=== PATIENT | female | born 1930 | race Two or more races ===

== ENCOUNTER 2017-04-29 04:11 | Inpatient (IN) | payer MEDICARE, OTHER ==
[2017-04-29] VITALS (8 sets, daily range): BP systolic 126–161; BP diastolic 37–84
[~2017-04-29] VITALS: Ht 160 cm; Wt 52.2 kg
--- NOTE | 2017-04-29 04:24 | Emergency Room Report ---
History of Present Illness General Chief Complaint: Upper Respiratory Illness Source: Patient, Medical Record, EMS Present Illness HPI Is an 86-year-old female with a history of CVA. Also history of asthma/COPD. Patient presents with shortness of breath ongoing for one day. No fever or chills. Coughing but nonproductive in nature. Per EMS, she was in respiratory distress and albuterol. He seemed to help. They described diffuse rhonchi. Nothing made it better and nothing made it worse. She denies any chest pain Allergies: Coded Allergies: PENICILLINS (Verified Allergy, Unknown, 04/29/17) SULFA (SULFONAMIDE ANTIBIOTICS) (Verified Allergy, Unknown, 04/29/17) Patient History Past Medical History: see triage record, old chart reviewed, COPD Past Surgical History: other Pertinent Family History: none Social History: Denies: smoking Now: No Immunizations: other Reviewed Nursing Documentation: PMH: Agreed, PSxH: Agreed Nursing Documentation-PMH Hx COPD: Yes Review of Systems Eye: Denies: blurred vision, eye pain ENT: Denies: ear pain, nose congestion, throat swelling Respiratory: Reports: cough, shortness of breath Cardiovascular: Denies: chest pain, palpitations Gastrointestinal: Denies: abdominal pain, diarrhea, nausea, vomiting Musculoskeletal: Denies: back pain, joint pain Skin: Denies: rash Neurological: Denies: headache, numbness Endocrine: Denies: increased thirst, increased urine Hematologic/Lymphatic: Denies: easy bruising All Other Systems: negative except mentioned in HPI Physical Exam Vital Signs Date Time Temp Pulse Resp B/P Pulse Ox O2 Delivery O2 Flow Rate FiO2 04/29/17 03:59 97.2 120 29 213/103 93 Room Air high-dose with tachycardia in hypertension and hypoxia. Repeat blood pressures 103/35. Sp02 EP Interpretation: reviewed, normal General Appearance: well appearing, alert, mild distress Head: normocephalic, atraumatic Eyes: bilateral eye EOMI, bilateral eye PERRL ENT: hearing grossly normal, normal pharynx Neck: full range of motion, supple, no meningismus Respiratory: chest non-tender, respiratory distress - Mild, accessory muscle use, rhonchi Cardiovascular #1: regular rate, rhythm, no murmur Gastrointestinal: normal bowel sounds, non tender, no mass, no organomegaly, no bruit, non-distended Musculoskeletal: back normal, normal range of motion Neurologic: alert Psychiatric: mood/affect normal Skin: warm/dry Medical Decision Making Diagnostic Impression: Primary Impression: Pneumonia Qualified Codes: J18.1 - Lobar pneumonia, unspecified organism Additional Impression: Asthma exacerbation ER Course Patient presents with rest or distress. Only has minimal nature. She does have some tightness and wheezing. Better with nebulizer treatment. No evidence of ACS, PE, dissection to name a few. Will admit patient for IV antibiotics and further workup. I discussed the case with Dr. Prado who accepted pt for admission. Laboratory Tests Test 04/29/17 04:10 04/29/17 04:30 04/29/17 05:00 White Blood Count 11.2 K/UL (4.8-10.8) H Red Blood Count 2.75 M/UL (4.20-5.40) L Hemoglobin 9.1 G/DL (12.0-16.0) L Hematocrit 26.5 % (37.0-47.0) L Mean Corpuscular Volume 96 FL (80-99) Mean Corpuscular Hemoglobin 33.2 PG (27.0-31.0) H Mean Corpuscular Hemoglobin Concent 34.5 G/DL (32.0-36.0) Red Cell Distribution Width 15.9 % (11.6-14.8) H Platelet Count 331 K/UL (150-450) Mean Platelet Volume 4.9 FL (6.5-10.1) L Neutrophils (%) (Auto) 60.9 % (45.0-75.0) Lymphocytes (%) (Auto) 13.4 % (20.0-45.0) L Monocytes (%) (Auto) 16.5 % (1.0-10.0) H Eosinophils (%) (Auto) 8.1 % (0.0-3.0) H Basophils (%) (Auto) 1.2 % (0.0-2.0) Prothrombin Time 10.6 SEC (9.30-11.50) Prothromb Time International Ratio 1.0 (0.9-1.1) Activated Partial Thromboplast Time 26 SEC (23-33) Sodium Level 131 mEQ/L (135-145) L Potassium Level 3.7 mEQ/L (3.4-4.9) Chloride Level 91 mEQ/L (98-107) L Carbon Dioxide Level 24 mEQ/L (20-30) Anion Gap 16 (5-15) H Blood Urea Nitrogen 6 mg/dL (7-23) L Creatinine 0.4 mg/dL (0.5-0.9) L Estimat Glomerular Filtration Rate mL/min (>60) Glucose Level 174 mg/dL (74-106) H Calcium Level 7.9 mg/dL (8.6-10.2) L Total Bilirubin 0.5 mg/dL (0.0-1.2) Aspartate Amino Transf (AST/SGOT) 13 U/L (5-40) Alanine Aminotransferase (ALT/SGPT) 7 U/L (3-33) Alkaline Phosphatase 66 U/L (35-104) Total Creatine Kinase 25 U/L (26-140) L Creatine Kinase MB < 1.5 ng/mL (< 3.8) Troponin I < 0.30 ng/mL (<=0.30) Pro-B-Type Natriuretic Peptide 745 pg/mL (0-450) H Total Protein 4.8 g/dL (6.6-8.7) L Albumin 2.9 g/dL (3.5-5.2) L Globulin 1.9 g/dL Albumin/Globulin Ratio 1.5 (1.0-2.7) Lactic Acid Level 1.40 mmol/L (0.66-2.22) Lab Results Impression labs unremarkable EKG Diagnostic Results EKG Time: 05:44 Rate: tachycardiac Rhythm: NSR ST Segments: no acute changes Rhythm Strip Diag. Results Rhythm Strip Time: 05:44 EP Interpretation: yes Rate: 92 Rhythm: NSR, no PVC's, no ectopy, other - NSST changes. Incomplete RBBB Chest X-Ray Diagnostic Results Chest X-Ray Diagnostic Results : Chest X-Ray Ordered: Yes # of Views/Limited/Complete: 1 View Indication: Shortness of Breath EP Interpretation: Yes Interpretation: no effusion, no pneumothorax, other - RLL infiltrate Impression: Other - rll infltrate Interpreting ER Provider: Electronically signed by Asif Ervin MD Last Vital Signs Date Time Temp Pulse Resp B/P Pulse Ox O2 Delivery O2 Flow Rate FiO2 04/29/17 03:59 97.2 120 29 213/103 93 Room Air Status: improved Disposition: ADMITTED INPATIENT Condition: Serious ASIF ERVIN M.D. Apr 29, 2017 04:24
[2017-04-29] MEDS ORDERED: Acetaminophen 500mg (ES) tab ORAL ONE (04:30)
[2017-04-29] MEDS ORDERED: DIFLUCAN100 MG ORAL (04:31)
[2017-04-29] MEDS ORDERED: VITAMIN C500 M1 ORAL (04:31)
[2017-04-29] MEDS ORDERED: ACETAMINOPHEN325 M1 ORAL (04:31)
[2017-04-29] MEDS ORDERED: PROTONIX40 MG ORAL (04:31)
[2017-04-29] MEDS ORDERED: MAG-OXIDE400 M1 PO (04:31)
[2017-04-29] MEDS ORDERED: IPRATROPIU0.2 MG/1 M HHN (04:31)
[2017-04-29] MEDS ORDERED: ATORVASTATIN CA10 MG ORAL (04:31)
[2017-04-29] MEDS ORDERED: OYSTER SHELL C500 MG PO (04:31)
[2017-04-29] MEDS ORDERED: FERROUS SULFAT325 MG ORAL (04:31)
[2017-04-29] MEDS ORDERED: ADVAIR 250-501 EACH INH (04:31)
[2017-04-29] MEDS ORDERED: METFORMIN HCL500 M1 ORAL (04:31)
[2017-04-29] MEDS ORDERED: CIPRO500 MG PO (04:31)
[2017-04-29 04:45] LABS: BASOPHILS % (AUTO) 1.2 % (0.0-2.0); EOSINOPHILS % (AUTO) 8.1 % (0.0-3.0); LYMPHOCYTES % (AUTO) 13.4 % (20.0-45.0); MEAN CORPUSCULAR HEMOGLOBIN 33.2 PG (27.0-31.0); MEAN CORPUSCULAR HGB CONC 34.5 G/DL (32.0-36.0); MEAN CORPUSCULAR VOLUME 96 FL (80-99); MEAN PLATELET VOLUME 4.9 FL (6.5-10.1); MONOCYTES % (AUTO) 16.5 % (1.0-10.0); NEUTROPHILS % (AUTO) 60.9 % (45.0-75.0); PLATELET COUNT 331 K/UL (150-450); RED BLOOD COUNT 2.75 M/UL (4.20-5.40); RED CELL DISTRIBUTION WIDTH 15.9 % (11.6-14.8); WHITE BLOOD COUNT 11.2 K/UL (4.8-10.8)
[2017-04-29 05:07] LABS: PROTHROMBIN TIME 10.6 SEC (9.30-11.50)
[2017-04-29] MEDS ORDERED: Cefepime 1gm vial ONE (05:25)
[2017-04-29] MEDS ORDERED: Cefepime HCl 1 GM in D5W 55 ML IVPB ONE (05:30)
[2017-04-29 05:41] LABS: ALANINE AMINOTRANSFERASE 7 U/L (3-33); ALBUMIN/GLOBULIN RATIO 1.5 (1.0-2.7); ANION GAP 16 (5-15); ASPARTATE AMINO TRANSFERASE 13 U/L (5-40); CALCIUM 7.9 mg/dL (8.6-10.2); CARBON DIOXIDE 24 mEQ/L (20-30); CHLORIDE 91 mEQ/L (98-107); CREATININE 0.4 mg/dL (0.5-0.9); HEMOLYSIS 10; POTASSIUM 3.7 mEQ/L (3.4-4.9); SODIUM 131 mEQ/L (135-145); TOTAL PROTEIN 4.8 g/dL (6.6-8.7)
[2017-04-29 06:04] LABS: TROPONIN I < 0.30 ng/mL (<=0.30)
[2017-04-29 06:13] LABS: CKMB < 1.5 ng/mL (< 3.8)
[2017-04-29] MEDS ORDERED: Albuterol ud Inhalation HHN ONE ×2 (06:30→08:30)
[2017-04-29] MEDS ORDERED: Ipratropium 0.02% Inh Soln 2.5ml UD HHN ONE (08:30)
--- NOTE | 2017-04-29 08:39 | History & Physical ---
History and Physical History & Physicial patient is seen and examined. Dictation completed Armando Prado MD Apr 29, 2017 08:39
[2017-04-29] MEDS ORDERED: Vancomycin 1.5gm/D5W 250ml 250 ML IVPB SCH (08:45)
[2017-04-29] MEDS: Heparin 5000 units/ml inj SUBQ SCH ×2 (09:46→21:00)
[2017-04-29] MEDS: Meropenem 1 GM in NS 110 ML IVPB SCH ×2 (09:46→21:00)
--- NOTE | 2017-04-29 09:46 | Infectious Diseases Prog Note ---
Assessment/Plan Assessment/Plan ID consult was dictated # [id number] Subjective Allergies: Coded Allergies: PENICILLINS (Verified Allergy, Unknown, 04/29/17) SULFA (SULFONAMIDE ANTIBIOTICS) (Verified Allergy, Unknown, 04/29/17) Objective Vital Signs Last 24 Hour Vital Signs Date Time Temp Pulse Resp B/P Pulse Ox O2 Delivery O2 Flow Rate FiO2 04/29/17 09:17 97.0 97 26 137/60 98 Nasal Cannula 2.0 04/29/17 08:34 97 27 95 Nasal Cannula 2.0 04/29/17 08:06 98 16 132/78 99 Nasal Cannula 2.0 04/29/17 07:41 97 24 Nasal Cannula 2.0 04/29/17 07:41 97.6 97 24 133/37 99 Nasal Cannula 2.0 04/29/17 06:45 97 19 100 Nasal Cannula 2.0 28 04/29/17 06:45 97.3 98 26 135/46 96 Nasal Cannula 2.0 04/29/17 06:30 94 26 92 Nasal Cannula 2.0 28 04/29/17 06:30 94 26 Nasal Cannula 2.0 28 04/29/17 06:13 97.2 04/29/17 04:15 97.2 100 26 126/79 93 Room Air 04/29/17 04:15 120 29 Room Air 2.0 04/29/17 03:59 97.2 120 29 213/103 93 Room Air Height (Feet): 5 Height (Inches): 3.00 Weight (Pounds): 115 Laboratory Tests Test 04/29/17 04:10 04/29/17 04:30 04/29/17 05:00 White Blood Count 11.2 K/UL (4.8-10.8) H Red Blood Count 2.75 M/UL (4.20-5.40) L Hemoglobin 9.1 G/DL (12.0-16.0) L Hematocrit 26.5 % (37.0-47.0) L Mean Corpuscular Volume 96 FL (80-99) Mean Corpuscular Hemoglobin 33.2 PG (27.0-31.0) H Mean Corpuscular Hemoglobin Concent 34.5 G/DL (32.0-36.0) Red Cell Distribution Width 15.9 % (11.6-14.8) H Platelet Count 331 K/UL (150-450) Mean Platelet Volume 4.9 FL (6.5-10.1) L Neutrophils (%) (Auto) 60.9 % (45.0-75.0) Lymphocytes (%) (Auto) 13.4 % (20.0-45.0) L Monocytes (%) (Auto) 16.5 % (1.0-10.0) H Eosinophils (%) (Auto) 8.1 % (0.0-3.0) H Basophils (%) (Auto) 1.2 % (0.0-2.0) Prothrombin Time 10.6 SEC (9.30-11.50) Prothromb Time International Ratio 1.0 (0.9-1.1) Activated Partial Thromboplast Time 26 SEC (23-33) Sodium Level 131 mEQ/L (135-145) L Potassium Level 3.7 mEQ/L (3.4-4.9) Chloride Level 91 mEQ/L (98-107) L Carbon Dioxide Level 24 mEQ/L (20-30) Anion Gap 16 (5-15) H Blood Urea Nitrogen 6 mg/dL (7-23) L Creatinine 0.4 mg/dL (0.5-0.9) L Estimat Glomerular Filtration Rate mL/min (>60) Glucose Level 174 mg/dL (74-106) H Calcium Level 7.9 mg/dL (8.6-10.2) L Total Bilirubin 0.5 mg/dL (0.0-1.2) Aspartate Amino Transf (AST/SGOT) 13 U/L (5-40) Alanine Aminotransferase (ALT/SGPT) 7 U/L (3-33) Alkaline Phosphatase 66 U/L (35-104) Total Creatine Kinase 25 U/L (26-140) L Creatine Kinase MB < 1.5 ng/mL (< 3.8) Troponin I < 0.30 ng/mL (<=0.30) Pro-B-Type Natriuretic Peptide 745 pg/mL (0-450) H Total Protein 4.8 g/dL (6.6-8.7) L Albumin 2.9 g/dL (3.5-5.2) L Globulin 1.9 g/dL Albumin/Globulin Ratio 1.5 (1.0-2.7) Lactic Acid Level 1.40 mmol/L (0.66-2.22) Current Medications Medications (Trade) Dose Ordered Sig/Abhijeet Route PRN Reason Start Time Stop Time Status Last Admin Dose Admin Acetaminophen (Tylenol) 650 mg Q6H PRN ORAL Mild Pain/Temp > 100.5 04/29/17 08:00 05/29/17 07:59 Heparin Sodium (Porcine) 5000 units 5,000 units EVERY 12 HOURS SUBQ 04/29/17 09:00 05/29/17 08:59 Meropenem/Sodium Chloride (Merrem/Sodium Chloride) 110 ml @ 220 mls/hr Q12HR IVPB 04/29/17 09:00 04/30/17 08:59 Ondansetron HCl (Zofran) 4 mg Q6H PRN IVP Nausea & Vomiting 04/29/17 08:00 05/29/17 07:59 Promethazine HCl/ Codeine (Phenergan with Codeine) 5 ml Q4H PRN ORAL For Cough 04/29/17 10:00 05/29/17 09:59 Vancomycin HCl 1 ea 1 ea DAILY PRN MISC per Rx protocol 04/29/17 09:00 05/29/17 08:59 Vancomycin HCl 1 gm/Dextrose 275 ml @ 183.708 mls/hr ONCE ONCE IVPB 04/29/17 10:00 04/29/17 11:29 Vancomycin HCl/ Dextrose (Vancomycin/D5W) 275 ml @ 183.708 mls/hr Q24H IVPB 04/30/17 09:00 05/05/17 08:59 CHINO MILLS Apr 29, 2017 09:46
[2017-04-29] MEDS ORDERED: Vancomycin 1gm/D5W 275ml IVPB ONE ×2 (10:00)
[2017-04-29] MEDS ORDERED: Promethazine/Codeine 5ml UD ORAL PRN (10:00)
[2017-04-29] MEDS ORDERED: DuoNeb 0.5-3(2.5)mg/3ml neb HHN PRN (11:00)
--- NOTE | 2017-04-29 12:13 | Consultation ---
History of Present Illness General Date patient seen: Apr 29, 2017 Chief Complaint: Upper Respiratory Illness Referring physician: Dr Prado Present Illness HPI 86-year-old female with a history of CVA, COPD with recent hospitalization in [facility] with subsequent discharge to a [facility] was brought in by paramedics with CC of shortness of breath ongoing for one day. No fever or chills. Coughing but nonproductive in nature. Pt was in respiratory distress and received nebulizer treatment which seemed to help her somewhat. Allergies: Coded Allergies: PENICILLINS (Verified Allergy, Unknown, 04/29/17) SULFA (SULFONAMIDE ANTIBIOTICS) (Verified Allergy, Unknown, 04/29/17) Medication History Scheduled Ascorbic Acid* (Vitamin C*), 500 MG ORAL DAILY, (Reported) Atorvastatin Calcium* (Lipitor*), 10 MG ORAL BEDTIME, (Reported) Calcium Carbonate (Oyster Shell Calcium), 500 MG PO BID, (Reported) Ciprofloxacin* (Cipro*), 500 MG PO BID, (Reported) Ferrous Sulfate* (Ferrous Sulfate*), 325 MG ORAL DAILY, (Reported) Fluconazole* (Diflucan*), 100 MG ORAL DAILY, (Reported) Fluticasone/Salmeterol (Advair 250-50 Diskus), 1 PUFF INH EVERY 12 HOURS, ( Reported) Magnesium Oxide (Mag-Oxide), 400 MG PO DAILY, (Reported) Metformin Hcl* (Metformin Hcl*), 500 MG ORAL DAILY, (Reported) Pantoprazole* (Protonix*), 40 MG ORAL BID, (Reported) Scheduled PRN Acetaminophen* (Acetaminophen 325MG Tablet*), 325 MG ORAL Q4H PRN for Mild Pain (Pain Scale 1-3), (Reported) Ipratropium Cushing 0.5MG/2.5ML (Ipratropium Cushing 0.5MG/2.5ML), 0.5 MG HHN Q4HR PRN for Shortness of Breath, (Reported) Patient History Healthcare decision maker Melissa Brown Resuscitation status Full Code Advanced Directive on File Past Medical/Surgical History Past Medical/Surgical History: (1) COPD (chronic obstructive pulmonary disease) (2) Advanced dementia Review of Systems Respiratory: Reports: cough, shortness of breath All Other Systems: negative except mentioned in HPI Physical Exam General Appearance: WD/WN Lines, tubes and drains: peripheral, central line HEENT: normocephalic, atraumatic Neck: non-tender, normal alignment Respiratory/Chest: chest wall non-tender, lungs clear Cardiovascular/Chest: normal peripheral pulses, normal rate Abdomen: normal bowel sounds, non tender Genitourinary/Rectal: normal genital exam, normal rectal exam, normal prostate exam Extremities: normal range of motion Last 24 Hour Vital Signs Date Time Temp Pulse Resp B/P Pulse Ox O2 Delivery O2 Flow Rate FiO2 04/29/17 11:32 97.2 96 26 134/56 97 Nasal Cannula 2.0 04/29/17 10:55 96 20 97 Nasal Cannula 2.0 04/29/17 09:17 97.0 97 26 137/60 98 Nasal Cannula 2.0 04/29/17 09:01 98 Nasal Cannula 2.0 04/29/17 09:00 Nasal Cannula 2.0 04/29/17 08:50 94 20 100 Nasal Cannula 2.0 04/29/17 08:34 97 27 95 Nasal Cannula 2.0 04/29/17 08:06 98 16 132/78 99 Nasal Cannula 2.0 04/29/17 07:41 97 24 Nasal Cannula 2.0 04/29/17 07:41 97.6 97 24 133/37 99 Nasal Cannula 2.0 04/29/17 06:45 97 19 100 Nasal Cannula 2.0 04/29/17 06:45 97.3 98 26 135/46 96 Nasal Cannula 2.0 04/29/17 06:30 94 26 92 Nasal Cannula 2.0 28 04/29/17 06:30 94 26 Nasal Cannula 2.0 04/29/17 06:13 97.2 04/29/17 04:15 97.2 100 26 126/79 93 Room Air 04/29/17 04:15 120 29 Room Air 2.0 04/29/17 03:59 97.2 120 29 213/103 93 Room Air Intake and Output 04/28/17 04/29/17 19:00 07:00 Intake Total 0 ml Balance 0 ml Other 0 ml Laboratory Tests Test 04/29/17 04:10 04/29/17 04:30 04/29/17 05:00 White Blood Count 11.2 K/UL (4.8-10.8) H Red Blood Count 2.75 M/UL (4.20-5.40) L Hemoglobin 9.1 G/DL (12.0-16.0) L Hematocrit 26.5 % (37.0-47.0) L Mean Corpuscular Volume 96 FL (80-99) Mean Corpuscular Hemoglobin 33.2 PG (27.0-31.0) H Mean Corpuscular Hemoglobin Concent 34.5 G/DL (32.0-36.0) Red Cell Distribution Width 15.9 % (11.6-14.8) H Platelet Count 331 K/UL (150-450) Mean Platelet Volume 4.9 FL (6.5-10.1) L Neutrophils (%) (Auto) 60.9 % (45.0-75.0) Lymphocytes (%) (Auto) 13.4 % (20.0-45.0) L Monocytes (%) (Auto) 16.5 % (1.0-10.0) H Eosinophils (%) (Auto) 8.1 % (0.0-3.0) H Basophils (%) (Auto) 1.2 % (0.0-2.0) Prothrombin Time 10.6 SEC (9.30-11.50) Prothromb Time International Ratio 1.0 (0.9-1.1) Activated Partial Thromboplast Time 26 SEC (23-33) Sodium Level 131 mEQ/L (135-145) L Potassium Level 3.7 mEQ/L (3.4-4.9) Chloride Level 91 mEQ/L (98-107) L Carbon Dioxide Level 24 mEQ/L (20-30) Anion Gap 16 (5-15) H Blood Urea Nitrogen 6 mg/dL (7-23) L Creatinine 0.4 mg/dL (0.5-0.9) L Estimat Glomerular Filtration Rate mL/min (>60) Glucose Level 174 mg/dL (74-106) H Calcium Level 7.9 mg/dL (8.6-10.2) L Total Bilirubin 0.5 mg/dL (0.0-1.2) Aspartate Amino Transf (AST/SGOT) 13 U/L (5-40) Alanine Aminotransferase (ALT/SGPT) 7 U/L (3-33) Alkaline Phosphatase 66 U/L (35-104) Total Creatine Kinase 25 U/L (26-140) L Creatine Kinase MB < 1.5 ng/mL (< 3.8) Troponin I < 0.30 ng/mL (<=0.30) Pro-B-Type Natriuretic Peptide 745 pg/mL (0-450) H Total Protein 4.8 g/dL (6.6-8.7) L Albumin 2.9 g/dL (3.5-5.2) L Globulin 1.9 g/dL Albumin/Globulin Ratio 1.5 (1.0-2.7) Lactic Acid Level 1.40 mmol/L (0.66-2.22) Height (Feet): 5 Height (Inches): 3.00 Weight (Pounds): 115 Medications Current Medications Medications (Trade) Dose Ordered Sig/Abhijeet Route PRN Reason Start Time Stop Time Status Last Admin Dose Admin Acetaminophen (Tylenol) 650 mg Q6H PRN ORAL Mild Pain/Temp > 100.5 04/29/17 08:00 05/29/17 07:59 Albuterol/ Ipratropium (DuoNeb 0.5-3(2.5)mg/3ml) 3 ml Q4H PRN HHN Shortness of Breath 04/29/17 11:00 05/04/17 10:59 04/29/17 10:58 Heparin Sodium (Porcine) 5000 units 5,000 units EVERY 12 HOURS SUBQ 04/29/17 09:00 05/29/17 08:59 Meropenem/Sodium Chloride (Merrem/Sodium Chloride) 110 ml @ 220 mls/hr Q12HR IVPB 04/29/17 09:00 05/04/17 08:59 04/29/17 09:46 Ondansetron HCl (Zofran) 4 mg Q6H PRN IVP Nausea & Vomiting 04/29/17 08:00 05/29/17 07:59 Promethazine HCl/ Codeine (Phenergan with Codeine) 5 ml Q4H PRN ORAL For Cough 04/29/17 10:00 05/29/17 09:59 Assessment/Plan Problem List: (1) Asthma exacerbation ICD Codes: J45.901 - Unspecified asthma with (acute) exacerbation SNOMED: 917981380 (2) COPD (chronic obstructive pulmonary disease) ICD Codes: J44.9 - Chronic obstructive pulmonary disease, unspecified SNOMED: 03423050 (3) Advanced dementia ICD Codes: F03.90 - Unspecified dementia without behavioral disturbance SNOMED: 62567730 (4) Pneumonia ICD Codes: J18.9 - Pneumonia, unspecified organism SNOMED: 275791241 Qualifiers: Qualified Codes: J18.1 - Lobar pneumonia, unspecified organism Assessment/Plan respiratory treatment IV anx check sputum antitussives anemia w/u dvt prophylaxis ALBERTO CHING Apr 29, 2017 12:13
--- NOTE | 2017-04-29 12:46 | History and Physical Report ---
DATE OF ADMISSION: 04/29/2017 SOURCE OF INFORMATION: The patient and EMR. HISTORY OF PRESENT ILLNESS: The patient is an 86-year-old female. She is a resident of a detention facility. She presented with worsening of shortness of breath for one day. The patient apparently is demented and limited source of information. Per emergency room documentation, no fever, no chills, has been reported. The patient denies any diarrhea, constipation, nausea, or vomiting. REVIEW OF SYSTEMS: All 12 points of review of systems reviewed with the patient. Pertinent positives and negatives are reported. PAST SURGICAL HISTORY: Lumbar and cervical surgeries. ALLERGIES: Penicillin and sulfa. PAST MEDICAL HISTORY: Asthma, COPD, spinal spondylosis, hyperlipidemia, dementia, COPD/asthma, and prediabetes/diabetes. FAMILY HISTORY: Reviewed. Noncontributory. SOCIAL HISTORY: The patient is currently resident of a detention facility. No prior history of illicit drug abuse or alcohol has been reported. PHYSICAL EXAMINATION: VITAL SIGNS: Blood pressure 140/50, temperature 98.2, pulse rate 120, respiratory rate 20-30, and pulse oximetry 93% on room air. HEAD AND NECK: Atraumatic and normocephalic. CHEST: Diffuse bronchial breathing sounds. Diffuse wheezing. HEART: S1 and S2. Tachycardic. Regular rate and rhythm. ABDOMEN: Soft. No organomegaly. Positive for small hernia in the lower abdomen. MUSCULOSKELETAL: Atrophied musculature. NEUROLOGIC: The patient is awake and alert x3. Positive for gross dementia. LABORATORY DATA: On 04/29/2017 shows WBC 11.2, hemoglobin 9.1, and platelets 331,000. Sodium 131, potassium 3.7, BUN 6, and creatinine 0.4. Troponin times x1 negative. ALT and AST are within normal limits. Official report of chest x-ray is not available at this time. ASSESSMENT AND PLAN: 1. Healthcare-associated pneumonia. 2. Chronic obstructive pulmonary disease and asthma exacerbation. 3. Hypertension. 4. Diabetes/prediabetes. 5. Hyperlipidemia. 6. Hyponatremia. 7. Anemia age indeterminate. 8. Gastrointestinal and deep vein thrombosis prophylaxis. PLAN OF CARE: I will start the patient on Zosyn and vancomycin. Blood culture results are pending. Infectious Disease, Pulmonary Dr. Salvador, Cardiology Dr. Leos have been consulted. Armando Prado M.D. DR: LAURE JOB#: [id number] CC: DENISHA
[2017-04-29 13:21] LABS: INR 1.1 (0.9-1.1); PROTHROMBIN TIME 11.3 SEC (9.30-11.50)
[2017-04-29 13:38] LABS: ANISOCYTOSIS 1+; BAND NEUTROPHILS % (MANUAL) 0 % (0-8); BASOPHILS % (MANUAL) 1 % (0-2); EOSINOPHILS % (MANUAL) 5 % (0-3); HYPOCHROMASIA 1+; LYMPHOCYTES % (MANUAL) 19 % (20-45); NEUTROPHILS % (MANUAL) 61 % (45-75); PLATELET ESTIMATE ADEQUATE; PLATELET MORPHOLOGY NORMAL; TOTAL CELLS COUNTED 100
[2017-04-29 13:39] LABS: PATH BLOOD SMEAR/OMC SENT TO PATHOLOGIST
[2017-04-29 13:46] LABS: TROPONIN I < 0.30 ng/mL (<=0.30)
[2017-04-29] MEDS ORDERED: Tubing IV Secondary IV ONE (13:47)
[2017-04-29] MEDS ORDERED: NS 275ml ONE (13:47)
[2017-04-29] MEDS: Solu-MEDROL 40mg Inj IVP SCH ×2 (14:00→21:36)
[2017-04-29 14:16] LABS: ERYTHROCYTE SEDIMENTATION RATE 46 MM/HR (0-42)
[2017-04-29 14:45] LABS: APPEARANCE,URINE CLEAR; KETONES,URINE 3+ (NEGATIVE); LEUKOCYTE ESTERASE ,URINE 1+ (NEGATIVE); NITRITE,URINE NEGATIVE (NEGATIVE); PH,URINE 8 (4.5-8.0); PROTEIN,URINE 1+ (NEGATIVE); UROBILINOGEN,URINE NORMAL MG/DL (0.0-1.0)
[2017-04-29 15:01] LABS: BACTERIA,URINE FEW /HPF; SQUAMOUS EPITHELIAL CELL,UR FEW /LPF (NONE/OCC)
--- NOTE | 2017-04-29 18:11 | Cardiology Progress Note ---
Assessment/Plan Assessment/Plan The patient is seen and examined, full consult note will be dictated. Objective Last 24 Hour Vital Signs Date Time Temp Pulse Resp B/P Pulse Ox O2 Delivery O2 Flow Rate FiO2 04/29/17 16:00 107 04/29/17 15:42 97.0 112 26 140/80 96 Nasal Cannula 2.0 04/29/17 12:00 84 04/29/17 11:32 97.2 96 26 134/56 97 Nasal Cannula 2.0 04/29/17 10:55 96 20 97 Nasal Cannula 2.0 04/29/17 09:17 97.0 97 26 137/60 98 Nasal Cannula 2.0 04/29/17 09:06 91 04/29/17 09:01 98 Nasal Cannula 2.0 04/29/17 09:00 Nasal Cannula 2.0 04/29/17 08:50 94 20 100 Nasal Cannula 2.0 04/29/17 08:34 97 27 95 Nasal Cannula 2.0 04/29/17 08:06 98 16 132/78 99 Nasal Cannula 2.0 04/29/17 07:41 97 24 Nasal Cannula 2.0 04/29/17 07:41 97.6 97 24 133/37 99 Nasal Cannula 2.0 04/29/17 06:45 97 19 100 Nasal Cannula 2.0 28 04/29/17 06:45 97.3 98 26 135/46 96 Nasal Cannula 2.0 04/29/17 06:30 94 26 92 Nasal Cannula 2.0 28 04/29/17 06:30 94 26 Nasal Cannula 2.0 28 04/29/17 06:13 97.2 04/29/17 04:15 97.2 100 26 126/79 93 Room Air 04/29/17 04:15 120 29 Room Air 2.0 04/29/17 03:59 97.2 120 29 213/103 93 Room Air Intake and Output 04/28/17 04/29/17 18:59 06:59 Intake Total 0 ml Balance 0 ml Other 0 ml Laboratory Tests Test 04/29/17 04:10 04/29/17 04:30 04/29/17 05:00 04/29/17 12:35 White Blood Count 11.2 K/UL (4.8-10.8) H Red Blood Count 2.75 M/UL (4.20-5.40) L Hemoglobin 9.1 G/DL (12.0-16.0) L Hematocrit 26.5 % (37.0-47.0) L Mean Corpuscular Volume 96 FL (80-99) Mean Corpuscular Hemoglobin 33.2 PG (27.0-31.0) H Mean Corpuscular Hemoglobin Concent 34.5 G/DL (32.0-36.0) Red Cell Distribution Width 15.9 % (11.6-14.8) H Platelet Count 331 K/UL (150-450) Mean Platelet Volume 4.9 FL (6.5-10.1) L Neutrophils (%) (Auto) 60.9 % (45.0-75.0) Lymphocytes (%) (Auto) 13.4 % (20.0-45.0) L Monocytes (%) (Auto) 16.5 % (1.0-10.0) H Eosinophils (%) (Auto) 8.1 % (0.0-3.0) H Basophils (%) (Auto) 1.2 % (0.0-2.0) Differential Total Cells Counted 100 Neutrophils % (Manual) 61 % (45-75) Lymphocytes % (Manual) 19 % (20-45) L Monocytes % (Manual) 14 % (1-10) H Eosinophils % (Manual) 5 % (0-3) H Basophils % (Manual) 1 % (0-2) Band Neutrophils 0 % (0-8) Platelet Estimate Adequate Platelet Morphology Normal Hypochromasia 1+ Anisocytosis 1+ Prothrombin Time 10.6 SEC (9.30-11.50) 11.3 SEC (9.30-11.50) Prothromb Time International Ratio 1.0 (0.9-1.1) 1.1 (0.9-1.1) Activated Partial Thromboplast Time 26 SEC (23-33) 29 SEC (23-33) Sodium Level 131 mEQ/L (135-145) L Potassium Level 3.7 mEQ/L (3.4-4.9) Chloride Level 91 mEQ/L (98-107) L Carbon Dioxide Level 24 mEQ/L (20-30) Anion Gap 16 (5-15) H Blood Urea Nitrogen 6 mg/dL (7-23) L Creatinine 0.4 mg/dL (0.5-0.9) L Estimat Glomerular Filtration Rate mL/min (>60) Glucose Level 174 mg/dL (74-106) H Calcium Level 7.9 mg/dL (8.6-10.2) L Total Bilirubin 0.5 mg/dL (0.0-1.2) Aspartate Amino Transf (AST/SGOT) 13 U/L (5-40) Alanine Aminotransferase (ALT/SGPT) 7 U/L (3-33) Alkaline Phosphatase 66 U/L (35-104) Total Creatine Kinase 25 U/L (26-140) L Creatine Kinase MB < 1.5 ng/mL (< 3.8) Troponin I < 0.30 ng/mL (<=0.30) < 0.30 ng/mL (<=0.30) Pro-B-Type Natriuretic Peptide 745 pg/mL (0-450) H Total Protein 4.8 g/dL (6.6-8.7) L Albumin 2.9 g/dL (3.5-5.2) L Globulin 1.9 g/dL Albumin/Globulin Ratio 1.5 (1.0-2.7) Lactic Acid Level 1.40 mmol/L (0.66-2.22) Erythrocyte Sedimentation Rate 46 MM/HR (0-42) H Reticulocyte Count 2.0 % (0.0-2.0) Osmolality 267 mOsm/kg (297-317) L Iron Level 27 ug/dL (37-145) L Total Iron Binding Capacity 147 ug/dL (250-400) L Percent Iron Saturation 18 % (15-50) Unsaturated Iron Binding 120 ug/dL (112-346) Lactate Dehydrogenase 247 U/L (135-230) H Carcinoembryonic Antigen 5.2 ng/mL H Vitamin B12 Level 1745 pg/mL (211-946) H Folate Pending Test 04/29/17 14:40 04/29/17 14:42 Stool Occult Blood Pending Urine Color Pale yellow Urine Appearance Clear Urine pH 8 (4.5-8.0) Urine Specific [place] 1.010 (1.005-1.035) Urine Protein 1+ (NEGATIVE) H Urine Glucose (UA) Negative (NEGATIVE) Urine Ketones 3+ (NEGATIVE) H Urine Occult Blood 5+ (NEGATIVE) H Urine Nitrite Negative (NEGATIVE) Urine Bilirubin Negative (NEGATIVE) Urine Urobilinogen Normal MG/DL (0.0-1.0) Urine Leukocyte Esterase 1+ (NEGATIVE) H Urine RBC 5-10 /HPF (0 - 2) H Urine WBC 2-4 /HPF (0 - 2) Urine Squamous Epithelial Cells Few /LPF (NONE/OCC) Urine Bacteria Few /HPF (NONE) Urine Osmolality 430 mOsm/kg (429-449) JOSE MCGRATH Apr 29, 2017 18:11
--- NOTE | 2017-04-29 21:17 | Consultation ---
DATE OF CONSULTATION: 04/29/2017 INFECTIOUS DISEASES CONSULTATION This consult is for coverage of Dr. Felix. PRIMARY ATTENDING PHYSICIAN: Armando Prado M.D. REASON FOR CONSULTATION: Pneumonia and chronic obstructive pulmonary disease. HISTORY OF PRESENT ILLNESS: The patient is an 86-year-old female, admitted today from a nursing facility. She has shortness of breath for one day and had coughing that is productive of small amount of greenish sputum, had tachycardia at that time of admission that was 120. The patient was recently admitted to [facility] with respiratory failure and intubated, had gastrointestinal bleeding but according to daughter there was no significant pathology finding in the EGD and colonoscopy. 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 ALLERGIES: Penicillin . MEDICATIONS: Vancomycin, promethazine, heparin, meropenem, Tylenol, and Zofran. SOCIAL HISTORY: . No history of alcohol, substance abuse, or smoking. She has seven children. She has four admission to [facility]. Lives at home with . Got flu shot last year. REVIEW OF SYSTEMS: As per history of present illness. No fever. No runny nose. No sore throat. Productive cough. No nausea. No vomiting. Poor appetite. No diarrhea. No problem passing urine. PHYSICAL EXAMINATION: VITAL SIGNS: Temperature 97, pulse 97, respiratory rate 26, blood pressure 137/60. GENERAL APPEARANCE: Seems to be thin, no acute distress. HEAD AND NECK: Getting O2 by nasal cannula. No oral lesions HEART: Regular. LUNGS: Clear with decreased sound. ABDOMEN: Soft and nontender. EXTREMITIES: No edema. NEUROLOGIC: Awake, alert, and oriented, moves all extremities. LABORATORY AND DIAGNOSTIC DATA: Sodium 131, potassium 3.7, chloride 91, bicarbonate 24, BUN 6, creatinine 0.4, glucose 174. BNP elevated 745. Albumin 2.9. WBC 11.2, hemoglobin 9.1, hematocrit 26.5, and platelets 331,000. Chest x-ray showed evidence of chronic obstructive pulmonary disease questionable infiltrates in the right side base. IMPRESSION: 1. Pneumonia. 2. Chronic obstructive pulmonary disease. 3. Asthma. 4. Penicillin allergy. 5. Recent history of hospitalization with respiratory failure. 6. Diabetes mellitus type 2. 7. Anemia. 8. Dyslipidemia. 9. Osteoporosis. RECOMMENDATIONS: 1. Continue meropenem. 2. Discontinue IV vancomycin. 3. We will follow culture and clinic course. At the end of my exam, I thank Dr. Prado, for involving me in the care of this patient. Rudy Rhodes M.D. DR: Ester JOB#: [id number] CC:
[2017-04-30 04:00] VITALS: BP 160/74
[2017-04-30] MEDS: Solu-MEDROL 40mg Inj IVP SCH ×3 (05:35→22:53)
[2017-04-30 08:00] VITALS: BP 137/77
[2017-04-30 08:39] LABS: ALANINE AMINOTRANSFERASE 7 U/L (3-33); ALBUMIN/GLOBULIN RATIO 1.3 (1.0-2.7); ANION GAP 15 (5-15); ASPARTATE AMINO TRANSFERASE 10 U/L (5-40); CALCIUM 8.2 mg/dL (8.6-10.2); CARBON DIOXIDE 24 mEQ/L (20-30); CHLORIDE 94 mEQ/L (98-107); CREATININE 0.4 mg/dL (0.5-0.9); HEMOLYSIS 0; POTASSIUM 4.1 mEQ/L (3.4-4.9); SODIUM 133 mEQ/L (135-145); TOTAL PROTEIN 5.4 g/dL (6.6-8.7)
--- NOTE | 2017-04-30 08:39 | Infectious Diseases Prog Note ---
Assessment/Plan Assessment/Plan ASSESSMENT: 86 y/o female with: // Possible HCAP vs bronchitis - SCx pending - CXR: pending // Leukocytosis - mild, afebrile ( on steroids ) // COPD exacerbation // h/o CVA // DM2 // NH resident // PCN, sulfa allergies - tolerating meropenem // Full Code PLAN: - continue meropenem d# 2 / 5-7 - taper steroids per primary - f/u cultures - monitor CBC, temperatures - monitor BMP - monitor CXR Subjective Allergies: Coded Allergies: PENICILLINS (Verified Allergy, Unknown, 04/29/17) SULFA (SULFONAMIDE ANTIBIOTICS) (Verified Allergy, Unknown, 04/29/17) Subjective remains afebrile. breathing improved Objective Vital Signs Last 24 Hour Vital Signs Date Time Temp Pulse Resp B/P Pulse Ox O2 Delivery O2 Flow Rate FiO2 04/30/17 08:00 97.3 81 18 137/77 100 Nasal Cannula 3.0 04/30/17 06:32 Nasal Cannula 2.0 04/30/17 06:32 95 18 Nasal Cannula 2.0 04/30/17 06:32 96 Nasal Cannula 2.0 28 04/30/17 04:00 97.5 93 18 160/74 100 Nasal Cannula 2.0 04/30/17 04:00 80 04/30/17 00:00 83 04/29/17 23:47 97.0 93 18 157/75 96 Nasal Cannula 2.0 04/29/17 23:31 16 04/29/17 23:30 16 04/29/17 19:55 97.0 105 20 161/84 97 Nasal Cannula 2.0 04/29/17 19:45 101 04/29/17 19:30 97 Nasal Cannula 2.0 28 04/29/17 19:30 100 20 Nasal Cannula 2.0 28 04/29/17 19:30 Nasal Cannula 2.0 28 04/29/17 19:30 16 04/29/17 19:30 16 04/29/17 16:00 107 04/29/17 15:42 97.0 112 26 140/80 96 Nasal Cannula 2.0 04/29/17 12:00 84 04/29/17 11:32 97.2 96 26 134/56 97 Nasal Cannula 2.0 04/29/17 10:55 96 20 97 Nasal Cannula 2.0 04/29/17 09:17 97.0 97 26 137/60 98 Nasal Cannula 2.0 04/29/17 09:06 91 04/29/17 09:01 98 Nasal Cannula 2.0 04/29/17 09:00 Nasal Cannula 2.0 04/29/17 08:50 94 20 100 Nasal Cannula 2.0 Height (Feet): 5 Height (Inches): 3.00 Weight (Pounds): 115 General Appearance: no acute distress Respiratory/Chest: no respiratory distress Cardiovascular: normal rate, regular rhythm Abdomen: normal bowel sounds, soft, non tender, non distended Microbiology Date/Time Source Procedure Growth Status 04/29/17 04:50 Blood Blood Culture - Preliminary NO GROWTH AFTER 24 HOURS Resulted 04/29/17 04:35 Blood Blood Culture - Preliminary NO GROWTH AFTER 24 HOURS Resulted 04/29/17 14:18 Sputum Gram Stain Pending Resulted 04/29/17 14:18 Sputum Sputum Culture - Preliminary Resulted Laboratory Tests Test 04/29/17 12:35 04/29/17 14:40 04/29/17 14:42 04/30/17 07:00 Erythrocyte Sedimentation Rate 46 MM/HR (0-42) H Reticulocyte Count 2.0 % (0.0-2.0) Prothrombin Time 11.3 SEC (9.30-11.50) Prothromb Time International Ratio 1.1 (0.9-1.1) Activated Partial Thromboplast Time 29 SEC (23-33) Osmolality 267 mOsm/kg (297-317) L Iron Level 27 ug/dL (37-145) L Total Iron Binding Capacity 147 ug/dL (250-400) L Percent Iron Saturation 18 % (15-50) Unsaturated Iron Binding 120 ug/dL (112-346) Lactate Dehydrogenase 247 U/L (135-230) H Troponin I < 0.30 ng/mL (<=0.30) Carcinoembryonic Antigen 5.2 ng/mL H Vitamin B12 Level 1745 pg/mL (211-946) H Folate Pending Stool Occult Blood Pending Urine Color Pale yellow Urine Appearance Clear Urine pH 8 (4.5-8.0) Urine Specific [place] 1.010 (1.005-1.035) Urine Protein 1+ (NEGATIVE) H Urine Glucose (UA) Negative (NEGATIVE) Urine Ketones 3+ (NEGATIVE) H Urine Occult Blood 5+ (NEGATIVE) H Urine Nitrite Negative (NEGATIVE) Urine Bilirubin Negative (NEGATIVE) Urine Urobilinogen Normal MG/DL (0.0-1.0) Urine Leukocyte Esterase 1+ (NEGATIVE) H Urine RBC 5-10 /HPF (0 - 2) H Urine WBC 2-4 /HPF (0 - 2) Urine Squamous Epithelial Cells Few /LPF (NONE/OCC) Urine Bacteria Few /HPF (NONE) Urine Osmolality 430 mOsm/kg (429-449) Sodium Level Pending Potassium Level Pending Chloride Level Pending Carbon Dioxide Level Pending Blood Urea Nitrogen Pending Creatinine Pending Estimat Glomerular Filtration Rate Pending Glucose Level Pending Calcium Level Pending Total Bilirubin Pending Aspartate Amino Transf (AST/SGOT) Pending Alanine Aminotransferase (ALT/SGPT) Pending Alkaline Phosphatase Pending Total Protein Pending Albumin Pending Globulin Pending Current Medications Medications (Trade) Dose Ordered Sig/Abhijeet Route PRN Reason Start Time Stop Time Status Last Admin Dose Admin Acetaminophen (Tylenol) 650 mg Q6H PRN ORAL Mild Pain/Temp > 100.5 04/29/17 08:00 05/29/17 07:59 Albuterol/ Ipratropium (DuoNeb 0.5-3(2.5)mg/3ml) 3 ml Q4H PRN HHN Shortness of Breath 04/29/17 11:00 05/04/17 10:59 04/29/17 10:58 Heparin Sodium (Porcine) 5000 units 5,000 units EVERY 12 HOURS SUBQ 04/29/17 09:00 05/29/17 08:59 04/29/17 21:00 Meropenem/Sodium Chloride (Merrem/Sodium Chloride) 110 ml @ 220 mls/hr Q12HR IVPB 04/29/17 09:00 05/04/17 08:59 04/29/17 21:00 Methylprednisolone Sodium Succinate (Solu-MEDROL) 40 mg EVERY 8 HOURS IVP 04/29/17 14:00 05/29/17 13:59 04/30/17 05:35 Ondansetron HCl (Zofran) 4 mg Q6H PRN IVP Nausea & Vomiting 04/29/17 08:00 05/29/17 07:59 Promethazine HCl/ Codeine (Phenergan with Codeine) 5 ml Q4H PRN ORAL For Cough 04/29/17 10:00 05/29/17 09:59 SHAUNNA HYMAN Apr 30, 2017 08:39
[2017-04-30] MEDS ORDERED: Vancomycin 750mg/D5W 275ml IVPB SCH ×2 (09:00)
[2017-04-30] MEDS: Meropenem 1 GM in NS 110 ML IVPB SCH ×2 (09:28→21:32)
[2017-04-30] MEDS: Heparin 5000 units/ml inj SUBQ SCH ×2 (09:28→21:31)
[2017-04-30 10:49] LABS: MEAN CORPUSCULAR HEMOGLOBIN 33.4 PG (27.0-31.0); MEAN CORPUSCULAR VOLUME 95 FL (80-99); PLATELET COUNT 405 K/UL (150-450); RED BLOOD COUNT 2.87 M/UL (4.20-5.40); WHITE BLOOD COUNT 3.2 K/UL (4.8-10.8)
--- NOTE | 2017-04-30 11:22 | General Progress Note ---
Assessment/Plan Status: stable Assessment/Plan 1. Healthcare-associated pneumonia. 2. Chronic obstructive pulmonary disease and asthma exacerbation. 3. Hypertension. 4. Diabetes/prediabetes. 5. Hyperlipidemia. 6. Hyponatremia. 7. Anemia age indeterminate. 8. Gastrointestinal and deep vein thrombosis prophylaxis. Plan: current management Consult GI for + FOBT will DC ASA for now Subjective ROS Limited/Unobtainable: No Respiratory: Reports: SOB at rest, shortness of breath Allergies: Coded Allergies: PENICILLINS (Verified Allergy, Unknown, 04/29/17) SULFA (SULFONAMIDE ANTIBIOTICS) (Verified Allergy, Unknown, 04/29/17) Objective Last 24 Hour Vital Signs Date Time Temp Pulse Resp B/P Pulse Ox O2 Delivery O2 Flow Rate FiO2 04/30/17 08:00 97.3 81 18 137/77 100 Nasal Cannula 3.0 04/30/17 08:00 77 04/30/17 06:32 Nasal Cannula 2.0 28 04/30/17 06:32 95 18 Nasal Cannula 2.0 04/30/17 06:32 96 Nasal Cannula 2.0 28 04/30/17 04:00 97.5 93 18 160/74 100 Nasal Cannula 2.0 04/30/17 04:00 80 04/30/17 00:00 83 04/29/17 23:47 97.0 93 18 157/75 96 Nasal Cannula 2.0 04/29/17 23:31 16 04/29/17 23:30 16 04/29/17 19:55 97.0 105 20 161/84 97 Nasal Cannula 2.0 04/29/17 19:45 101 04/29/17 19:30 97 Nasal Cannula 2.0 28 04/29/17 19:30 100 20 Nasal Cannula 2.0 28 04/29/17 19:30 Nasal Cannula 2.0 28 04/29/17 19:30 16 04/29/17 19:30 16 04/29/17 16:00 107 04/29/17 15:42 97.0 112 26 140/80 96 Nasal Cannula 2.0 04/29/17 12:00 84 04/29/17 11:32 97.2 96 26 134/56 97 Nasal Cannula 2.0 Intake and Output 04/29/17 04/30/17 19:00 07:00 Intake Total 490 ml Output Total 100 ml Balance 390 ml Intake Oral 120 ml IV Total 370 ml Output Urine Total 100 ml # Voids 1 6 # Bowel Movements 2 Laboratory Tests 04/29/17 12:35: Erythrocyte Sedimentation Rate 46H, Reticulocyte Count 2.0, Prothrombin Time 11.3, Prothromb Time International Ratio 1.1, Activated Partial Thromboplast Time 29, Osmolality 267L, Iron Level 27L, Total Iron Binding Capacity 147L, Percent Iron Saturation 18, Unsaturated Iron Binding 120, Lactate Dehydrogenase 247H, Troponin I < 0.30, Carcinoembryonic Antigen 5.2H, Vitamin B12 Level 1745H , Folate [Pending] 04/29/17 14:40: Stool Occult Blood Positive 04/29/17 14:42: Urine Color Pale yellow, Urine Appearance Clear, Urine pH 8, Urine Specific [place] 1.010, Urine Protein 1+H, Urine Glucose (UA) Negative, Urine Ketones 3+H , Urine Occult Blood 5+H, Urine Nitrite Negative, Urine Bilirubin Negative, Urine Urobilinogen Normal, Urine Leukocyte Esterase 1+H, Urine RBC 5-10H, Urine WBC 2-4, Urine Squamous Epithelial Cells Few, Urine Bacteria Few, Urine Osmolality 430 04/30/17 07:00: Sodium Level 133L, Potassium Level 4.1, Chloride Level 94L, Carbon Dioxide Level 24, Anion Gap 15, Blood Urea Nitrogen 8, Creatinine 0.4L, Estimat Glomerular Filtration Rate , Glucose Level 232H, Calcium Level 8.2L, Total Bilirubin 0.4, Aspartate Amino Transf (AST/SGOT) 10, Alanine Aminotransferase ( ALT/SGPT) 7, Alkaline Phosphatase 65, Total Protein 5.4L, Albumin 3.1L, Globulin 2.3, Albumin/Globulin Ratio 1.3 04/30/17 09:45: White Blood Count 3.2#L, Red Blood Count 2.87L, Hemoglobin 9.6L, Hematocrit 27.4L, Mean Corpuscular Volume 95, Mean Corpuscular Hemoglobin 33.4H, Mean Corpuscular Hemoglobin Concent 35.0, Red Cell Distribution Width 15.0H, Platelet Count 405, Mean Platelet Volume 5.0L, Neutrophils (%) (Auto) , Lymphocytes (%) (Auto) , Monocytes (%) (Auto) , Eosinophils (%) (Auto) , Basophils (%) (Auto) , Neutrophils % (Manual) [Pending], Lymphocytes % (Manual) [Pending], Platelet Estimate [Pending], Platelet Morphology [Pending] Height (Feet): 5 Height (Inches): 3.00 Weight (Pounds): 115 General Appearance: no apparent distress EENT: PERRL/EOMI Neck: supple Cardiovascular: normal rate Respiratory/Chest: crackles/rales, rhonchi - bilaterally Abdomen: soft Extremities: non-tender Neurologic: machine precision etcher II-XII grossly normal, oriented x 3, other - gorss dementia Armando Prado MD Apr 30, 2017 11:22
[2017-04-30 12:00] VITALS: BP 137/56
--- NOTE | 2017-04-30 12:05 | Pulmonology Progress Note ---
Assessment/Plan Problems: (1) Asthma exacerbation (2) COPD (chronic obstructive pulmonary disease) (3) Advanced dementia (4) Pneumonia Assessment/Plan improving less wheezing OB positive, GI notified check sputum med/surg Subjective ROS Limited/Unobtainable: No Interval Events: less short of breath Constitutional: Reports: no symptoms HEENT: Repors: no symptoms Respiratory: Reports: no symptoms Allergies: Coded Allergies: PENICILLINS (Verified Allergy, Unknown, 04/29/17) SULFA (SULFONAMIDE ANTIBIOTICS) (Verified Allergy, Unknown, 04/29/17) Objective Last 24 Hour Vital Signs Date Time Temp Pulse Resp B/P Pulse Ox O2 Delivery O2 Flow Rate FiO2 04/30/17 08:00 97.3 81 18 137/77 100 Nasal Cannula 3.0 04/30/17 08:00 77 04/30/17 06:32 Nasal Cannula 2.0 04/30/17 06:32 95 18 Nasal Cannula 2.0 04/30/17 06:32 96 Nasal Cannula 2.0 04/30/17 04:00 97.5 93 18 160/74 100 Nasal Cannula 2.0 04/30/17 04:00 80 04/30/17 00:00 83 04/29/17 23:47 97.0 93 18 157/75 96 Nasal Cannula 2.0 04/29/17 23:31 16 04/29/17 23:30 16 04/29/17 19:55 97.0 105 20 161/84 97 Nasal Cannula 2.0 04/29/17 19:45 101 04/29/17 19:30 97 Nasal Cannula 2.0 04/29/17 19:30 100 20 Nasal Cannula 2.0 04/29/17 19:30 Nasal Cannula 2.0 28 04/29/17 19:30 16 04/29/17 19:30 16 04/29/17 16:00 107 04/29/17 15:42 97.0 112 26 140/80 96 Nasal Cannula 2.0 Intake and Output 04/29/17 04/30/17 19:00 07:00 Intake Total 490 ml Output Total 100 ml Balance 390 ml Intake Oral 120 ml IV Total 370 ml Output Urine Total 100 ml # Voids 1 6 # Bowel Movements 2 General Appearance: WD/WN HEENT: normocephalic, atraumatic Respiratory/Chest: chest wall non-tender, lungs clear Breasts: no masses Cardiovascular: normal peripheral pulses, normal rate, regular rhythm Abdomen: normal bowel sounds, soft, non tender Extremities: no clubbing Skin: no ulcers Neurologic/Psychiatric: health data analyst II-XII grossly normal, no motor/sensory deficits Lymphatic: no neck adenopathy Musculoskeletal: normal muscle bulk Microbiology Date/Time Source Procedure Growth Status 04/29/17 04:50 Blood Blood Culture - Preliminary NO GROWTH AFTER 24 HOURS Resulted 04/29/17 04:35 Blood Blood Culture - Preliminary NO GROWTH AFTER 24 HOURS Resulted 04/29/17 14:18 Sputum Gram Stain - Final Resulted 04/29/17 14:18 Sputum Sputum Culture - Preliminary Resulted Laboratory Tests 04/29/17 12:35: Erythrocyte Sedimentation Rate 46H, Reticulocyte Count 2.0, Prothrombin Time 11.3, Prothromb Time International Ratio 1.1, Activated Partial Thromboplast Time 29, Osmolality 267L, Iron Level 27L, Total Iron Binding Capacity 147L, Percent Iron Saturation 18, Unsaturated Iron Binding 120, Lactate Dehydrogenase 247H, Troponin I < 0.30, Carcinoembryonic Antigen 5.2H, Vitamin B12 Level 1745H , Folate [Pending] 04/29/17 14:40: Stool Occult Blood Positive 04/29/17 14:42: Urine Color Pale yellow, Urine Appearance Clear, Urine pH 8, Urine Specific [place] 1.010, Urine Protein 1+H, Urine Glucose (UA) Negative, Urine Ketones 3+H , Urine Occult Blood 5+H, Urine Nitrite Negative, Urine Bilirubin Negative, Urine Urobilinogen Normal, Urine Leukocyte Esterase 1+H, Urine RBC 5-10H, Urine WBC 2-4, Urine Squamous Epithelial Cells Few, Urine Bacteria Few, Urine Osmolality 430 04/30/17 07:00: Sodium Level 133L, Potassium Level 4.1, Chloride Level 94L, Carbon Dioxide Level 24, Anion Gap 15, Blood Urea Nitrogen 8, Creatinine 0.4L, Estimat Glomerular Filtration Rate , Glucose Level 232H, Calcium Level 8.2L, Total Bilirubin 0.4, Aspartate Amino Transf (AST/SGOT) 10, Alanine Aminotransferase ( ALT/SGPT) 7, Alkaline Phosphatase 65, Total Protein 5.4L, Albumin 3.1L, Globulin 2.3, Albumin/Globulin Ratio 1.3 04/30/17 09:45: White Blood Count 3.2#L, Red Blood Count 2.87L, Hemoglobin 9.6L, Hematocrit 27.4L, Mean Corpuscular Volume 95, Mean Corpuscular Hemoglobin 33.4H, Mean Corpuscular Hemoglobin Concent 35.0, Red Cell Distribution Width 15.0H, Platelet Count 405, Mean Platelet Volume 5.0L, Neutrophils (%) (Auto) , Lymphocytes (%) (Auto) , Monocytes (%) (Auto) , Eosinophils (%) (Auto) , Basophils (%) (Auto) , Neutrophils % (Manual) [Pending], Lymphocytes % (Manual) [Pending], Platelet Estimate [Pending], Platelet Morphology [Pending] Current Medications Medications (Trade) Dose Ordered Sig/Abhijeet Route PRN Reason Start Time Stop Time Status Last Admin Dose Admin Acetaminophen (Tylenol) 650 mg Q6H PRN ORAL Mild Pain/Temp > 100.5 04/29/17 08:00 05/29/17 07:59 Albuterol/ Ipratropium (DuoNeb 0.5-3(2.5)mg/3ml) 3 ml Q4H PRN HHN Shortness of Breath 04/29/17 11:00 05/04/17 10:59 04/29/17 10:58 Heparin Sodium (Porcine) 5000 units 5,000 units EVERY 12 HOURS SUBQ 04/29/17 09:00 05/29/17 08:59 04/30/17 09:28 Meropenem/Sodium Chloride (Merrem/Sodium Chloride) 110 ml @ 220 mls/hr Q12HR IVPB 04/29/17 09:00 05/04/17 08:59 04/30/17 09:28 Methylprednisolone Sodium Succinate (Solu-MEDROL) 40 mg EVERY 8 HOURS IVP 04/29/17 14:00 05/29/17 13:59 04/30/17 05:35 Ondansetron HCl (Zofran) 4 mg Q6H PRN IVP Nausea & Vomiting 04/29/17 08:00 05/29/17 07:59 Promethazine HCl/ Codeine (Phenergan with Codeine) 5 ml Q4H PRN ORAL For Cough 04/29/17 10:00 05/29/17 09:59 ALBERTO CHNIG Apr 30, 2017 12:05
--- NOTE | 2017-04-30 12:07 | GI Initial Consult Note ---
History of Present Illness General Date patient seen: Apr 30, 2017 Time patient seen: 12:04 Reason for Hospitalization: Upper Respiratory Illness Referring physician: Dr Prado Reason for Consultation: OCCULT BLOOD POSITIVE Present Illness HPI Is an 86-year-old female with a history of CVA. Also history of asthma/COPD. Patient presents with shortness of breath ongoing for one day. No fever or chills. Coughing but nonproductive in nature. Per EMS, she was in respiratory distress and albuterol. He seemed to help. They described diffuse rhonchi. Nothing made it better and nothing made it worse. She denies any chest pain GI Consult. HPI as noted above. GI consulted for positive OB stool. ROS limited, poor memory. Pt seen on floor, awake alert NAD with no active s/sx of N/V/D. Presents today with anemia, elevated CEA and hypoalbuminemia. Unknown history of endoscopic procedures. Patient is unsure whether she has had one or not. Home Meds Reported Medications Ipratropium [place] 0.5MG/2.5ML (IPRATROPIUM BROMIDE 0.5MG/2.5ML) 0.2 Mg/1 Ml Solution, 0.5 MG HHN Q4HR Y for Shortness of Breath, #28 EA 04/29/17 Ascorbic Acid* (VITAMIN C*) 500 Mg Tablet, 500 MG ORAL DAILY, #30 TAB 0 Refills 04/29/17 Pantoprazole* (PROTONIX*) 40 Mg Tablet., 40 MG ORAL BID, TAB 04/29/17 Calcium Carbonate (OYSTER SHELL CALCIUM) 500 Mg Tablet, 500 MG PO BID, TAB 04/29/17 Metformin Hcl* (METFORMIN HCL*) 500 Mg Tablet, 500 MG ORAL DAILY, TAB 04/29/17 Magnesium Oxide (MAG-OXIDE) 400 Mg Tablet, 400 MG PO DAILY, TAB 04/29/17 Atorvastatin Calcium* (LIPITOR*) 10 Mg Tablet, 10 MG ORAL BEDTIME, TAB 04/29/17 Ferrous Sulfate* (FERROUS SULFATE*) 325 Mg Tablet, 325 MG ORAL DAILY, #30 TAB 0 Refills 04/29/17 Fluconazole* (DIFLUCAN*) 100 Mg Tablet, 100 MG ORAL DAILY, TAB 04/29/17 Ciprofloxacin* (CIPRO*) 500 Mg Tablet, 500 MG PO BID, #14 TAB 04/29/17 Fluticasone/Salmeterol (Advair 250-50 Diskus) 1 Each Blst.w.dev, 1 PUFF INH EVERY 12 HOURS, EA 04/29/17 Acetaminophen* (ACETAMINOPHEN 325MG TABLET*) 325 Mg Tablet, 325 MG ORAL Q4H Y for Mild Pain (Pain Scale 1-3), TAB 04/29/17 Med list reviewed/reconciled: Yes Allergies: Coded Allergies: PENICILLINS (Verified Allergy, Unknown, 04/29/17) SULFA (SULFONAMIDE ANTIBIOTICS) (Verified Allergy, Unknown, 04/29/17) Patient History History Provided By: Medical Record PMH Narrative Past Medical History: see triage record, old chart reviewed, COPD Past Surgical History: other Pertinent Family History: none Social History: Denies: smoking Now: No Immunizations: other Reviewed Nursing Documentation: PMH: Agreed, PSxH: Agreed Nursing Documentation-PMH Hx COPD: Yes Social History: Denies: alcohol use, drug use, other, smoking Review of Systems All Other Systems: limited Physical Exam Vital Signs Date Time Temp Pulse Resp B/P Pulse Ox O2 Delivery O2 Flow Rate FiO2 04/29/17 03:59 97.2 120 29 213/103 93 Room Air 04/29/17 04:15 2.0 04/29/17 06:30 28 Sp02 EP Interpretation: reviewed Labs Laboratory Tests Test 04/29/17 12:35 04/29/17 14:40 04/29/17 14:42 04/30/17 07:00 Erythrocyte Sedimentation Rate 46 MM/HR (0-42) H Reticulocyte Count 2.0 % (0.0-2.0) Prothrombin Time 11.3 SEC (9.30-11.50) Prothromb Time International Ratio 1.1 (0.9-1.1) Activated Partial Thromboplast Time 29 SEC (23-33) Osmolality 267 mOsm/kg (297-317) L Iron Level 27 ug/dL (37-145) L Total Iron Binding Capacity 147 ug/dL (250-400) L Percent Iron Saturation 18 % (15-50) Unsaturated Iron Binding 120 ug/dL (112-346) Lactate Dehydrogenase 247 U/L (135-230) H Troponin I < 0.30 ng/mL (<=0.30) Carcinoembryonic Antigen 5.2 ng/mL H Vitamin B12 Level 1745 pg/mL (211-946) H Folate Pending Stool Occult Blood Positive (NEGATIVE) Urine Color Pale yellow Urine Appearance Clear Urine pH 8 (4.5-8.0) Urine Specific [place] 1.010 (1.005-1.035) Urine Protein 1+ (NEGATIVE) H Urine Glucose (UA) Negative (NEGATIVE) Urine Ketones 3+ (NEGATIVE) H Urine Occult Blood 5+ (NEGATIVE) H Urine Nitrite Negative (NEGATIVE) Urine Bilirubin Negative (NEGATIVE) Urine Urobilinogen Normal MG/DL (0.0-1.0) Urine Leukocyte Esterase 1+ (NEGATIVE) H Urine RBC 5-10 /HPF (0 - 2) H Urine WBC 2-4 /HPF (0 - 2) Urine Squamous Epithelial Cells Few /LPF (NONE/OCC) Urine Bacteria Few /HPF (NONE) Urine Osmolality 430 mOsm/kg (429-449) Sodium Level 133 mEQ/L (135-145) L Potassium Level 4.1 mEQ/L (3.4-4.9) Chloride Level 94 mEQ/L (98-107) L Carbon Dioxide Level 24 mEQ/L (20-30) Anion Gap 15 (5-15) Blood Urea Nitrogen 8 mg/dL (7-23) Creatinine 0.4 mg/dL (0.5-0.9) L Estimat Glomerular Filtration Rate mL/min (>60) Glucose Level 232 mg/dL (74-106) H Calcium Level 8.2 mg/dL (8.6-10.2) L Total Bilirubin 0.4 mg/dL (0.0-1.2) Aspartate Amino Transf (AST/SGOT) 10 U/L (5-40) Alanine Aminotransferase (ALT/SGPT) 7 U/L (3-33) Alkaline Phosphatase 65 U/L (35-104) Total Protein 5.4 g/dL (6.6-8.7) L Albumin 3.1 g/dL (3.5-5.2) L Globulin 2.3 g/dL Albumin/Globulin Ratio 1.3 (1.0-2.7) Test 04/30/17 09:45 White Blood Count 3.2 K/UL (4.8-10.8) #L Red Blood Count 2.87 M/UL (4.20-5.40) L Hemoglobin 9.6 G/DL (12.0-16.0) L Hematocrit 27.4 % (37.0-47.0) L Mean Corpuscular Volume 95 FL (80-99) Mean Corpuscular Hemoglobin 33.4 PG (27.0-31.0) H Mean Corpuscular Hemoglobin Concent 35.0 G/DL (32.0-36.0) Red Cell Distribution Width 15.0 % (11.6-14.8) H Platelet Count 405 K/UL (150-450) Mean Platelet Volume 5.0 FL (6.5-10.1) L Neutrophils (%) (Auto) % (45.0-75.0) Lymphocytes (%) (Auto) % (20.0-45.0) Monocytes (%) (Auto) % (1.0-10.0) Eosinophils (%) (Auto) % (0.0-3.0) Basophils (%) (Auto) % (0.0-2.0) Neutrophils % (Manual) Pending Lymphocytes % (Manual) Pending Platelet Estimate Pending Platelet Morphology Pending General Appearance: well appearing, no apparent distress, alert Head: normocephalic EENT: PERRL/EOMI, normal ENT inspection Neck: supple Respiratory: normal breath sounds, no respiratory distress Cardiovascular: normal rate Gastrointestinal: normal inspection, non tender, soft Rectal: deferred Musculoskeletal: back normal Neurologic: normal inspection, alert Psychiatric: normal inspection, judgement/insight normal, memory normal Skin: normal inspection Lymphatic: normal inspection, no adenopathy Current Medications Current Medications Medications (Trade) Dose Ordered Sig/Abhijeet Route PRN Reason Start Time Stop Time Status Last Admin Dose Admin Acetaminophen (Tylenol) 650 mg Q6H PRN ORAL Mild Pain/Temp > 100.5 04/29/17 08:00 05/29/17 07:59 Albuterol/ Ipratropium (DuoNeb 0.5-3(2.5)mg/3ml) 3 ml Q4H PRN HHN Shortness of Breath 04/29/17 11:00 05/04/17 10:59 04/29/17 10:58 Heparin Sodium (Porcine) 5000 units 5,000 units EVERY 12 HOURS SUBQ 04/29/17 09:00 05/29/17 08:59 04/30/17 09:28 Meropenem/Sodium Chloride (Merrem/Sodium Chloride) 110 ml @ 220 mls/hr Q12HR IVPB 04/29/17 09:00 05/04/17 08:59 04/30/17 09:28 Methylprednisolone Sodium Succinate (Solu-MEDROL) 40 mg EVERY 8 HOURS IVP 04/29/17 14:00 05/29/17 13:59 04/30/17 05:35 Ondansetron HCl (Zofran) 4 mg Q6H PRN IVP Nausea & Vomiting 04/29/17 08:00 05/29/17 07:59 Promethazine HCl/ Codeine (Phenergan with Codeine) 5 ml Q4H PRN ORAL For Cough 04/29/17 10:00 05/29/17 09:59 GI: Plan Problems: (1) Anemia (2) Elevated CEA (3) Severe malnutrition Plan elevated CEA iron panel unremarkable OB stool positive hold EGD/colonoscopy >> patient had both done at [facility] x 2 weeks ago > > will obtain records monitor H&H, prn transfusions anemia work up ppi fu labs Discussed with Dr. Blair. Thank you for referring this patient, we will follow. Zeenat Ervin N.P. Apr 30, 2017 12:07
[2017-04-30 12:13] LABS: ANISOCYTOSIS 1+; BAND NEUTROPHILS % (MANUAL) 0 % (0-8); BASOPHILS % (MANUAL) 0 % (0-2); EOSINOPHILS % (MANUAL) 0 % (0-3); HYPOCHROMASIA 1+; LYMPHOCYTES % (MANUAL) 18 % (20-45); NEUTROPHILS % (MANUAL) 78 % (45-75); PLATELET ESTIMATE ADEQUATE; PLATELET MORPHOLOGY NORMAL; TOTAL CELLS COUNTED 100
[2017-04-30] MEDS: NovoLOG Insulin Flexpen SUBQ SCH ×3 (13:18→21:32)
[2017-04-30 16:00] VITALS: BP 132/49
[2017-04-30] MEDS ORDERED: Bisacodyl EC 5mg tab ORAL ONE (16:00)
[2017-04-30] MEDS ORDERED: Magnesium Citrate Liq Btl ORAL ONE (16:00)
[2017-04-30] MEDS ORDERED: Polyethylene Glycol 238gm bottle ORAL ONE (16:00)
--- NOTE | 2017-04-30 16:09 | Wound Care Consultation ---
Wound Assessment Wound Assessment #1: Wound Number: #1 Wound Present on Admission: Yes New Wound: No Status Change of Wound: No Wound Location Body Site Modif: mid Wound Location Body Site: coccyx Wound Type: pressure ulcer Jackie Test: Does not Jackie Pressure Ulcer Stage: II Wound Thickness: Partial Thickness Wound Length: 2.0 - scattered Wound Width: 2.0 - scattered Wound Depth: <0.1 Percent of Wound [place]/Red: 100 Wound Drainage Description: Serosanguineous Wound Drainage Amount: Scant Wound Drainage Odor: None/Absent Tissue Surrounding Wound: Erythemic Wound General Appearance: Reddened Wound Assessment #2: Wound Number: #2 Wound Present on Admission: Yes New Wound: No Status Change of Wound: No Wound Location Body Site: sacral Wound Type: pressure ulcer Jackie Test: Does not Jackie Pressure Ulcer Stage: deep tissue injury - suspected Wound Thickness: Full Thickness Wound Length: 7.0 Wound Width: 7.0 Wound Depth: utd Percent of Wound [place]/Red: 50 Percent of Wound Purple/Maroon: 50 Wound Drainage Amount: None Wound Drainage Odor: None/Absent Tissue Surrounding Wound: Intact - c/o tender Wound General Appearance: Reddened Wound Assessment #3: Wound Number: #3 Wound Present on Admission: Yes New Wound: No Status Change of Wound: No Wound Location Body Site Modif: left Wound Location Body Site: arm - forearm Wound Type: traumatic injury - skin tear no flap Jackie Test: Does not Jackie Wound Thickness: Full Thickness Wound Length: 5.0 Wound Width: 5.0 Wound Depth: 0.2 Percent of Wound [place]/Red: 50 Percent of Wound Purple/Maroon: 50 Other Colors Identified: surrounding tissue noted purple ecchymosis Wound Drainage Description: Serosanguineous Wound Drainage Amount: Moderate Wound Drainage Odor: None/Absent Tissue Surrounding Wound: Erythemic Wound General Appearance: Reddened, Draining Wound Assessment #4: Wound Number: #4 New Wound: No Status Change of Wound: No Wound Location Body Site Modif: right Wound Location Body Site: hand Wound Type: ecchymosis - ruptured Jackie Test: Does not Jackie Wound Thickness: Full Thickness Wound Length: 3.5 Wound Width: 3.5 Wound Depth: utd Percent of Wound [place]/Red: 50 Percent of Wound Black/Brown: 50 - scab formation Wound Drainage Description: Serosanguineous Wound Drainage Amount: Scant Wound Drainage Odor: None/Absent Tissue Surrounding Wound: Erythemic Wound General Appearance: Reddened Wound Comment #1 coccyx pressure ulcer stage II. #2 sacral suspected deep tissue injury. #3 left forearm traumatic injury skin tear with no flap. #4 right hand ruptured ecchymosis. Recommendation. - Local wound care as ordered. -Apply low air loss mattress SPR . -Turn and reposition. -Keep clean and dry. -Optimize nutrition. -Heel protectors. -Offload affected pressure sites , heels and feet. -Avoid shear and friction. - Assess and notify MD for any further change of condition noted to skin. PREET NASH Apr 30, 2017 16:09
--- NOTE | 2017-04-30 18:13 | Cardiology Report ---
APPROVED REPORT EKG Measurement Heart [id number] Sinus tachycardia Right bundle branch block Left anterior fascicular block (Bifascicular block) Abnormal ECG
[2017-04-30 20:05] VITALS: BP 154/67
[2017-04-30 22:20] VITALS: BP 156/64
[2017-04-30] MEDS ORDERED: Promethazine/Codeine 5ml UD ORAL PRN (22:39)
[2017-04-30] MEDS ORDERED: DuoNeb 0.5-3(2.5)mg/3ml neb HHN PRN (23:00)
[2017-04-30] MEDS ORDERED: Fleet's Enema 133ml RECTAL ONE (23:00)
--- NOTE | 2017-04-30 23:59 | Cardiology Progress Note ---
Assessment/Plan Assessment/Plan 1.Dyspnea likely due to PNA, superimposed on acute exacerbation of COPD, continue O2, exercise, hydration, and IV ABx. 2D echo reveals normal LV systolic function with LVEF at 65%. 2. Accelerated HTN, start Diltiazem. Subjective Subjective Not on the telemetry unit. Denies chest pain or SOB. Objective Last 24 Hour Vital Signs Date Time Temp Pulse Resp B/P Pulse Ox O2 Delivery O2 Flow Rate FiO2 04/30/17 22:20 97.7 74 18 156/64 96 Nasal Cannula 2.0 28 04/30/17 20:23 98 Nasal Cannula 2.0 28 04/30/17 20:23 95 18 Nasal Cannula 2.0 28 04/30/17 20:23 Nasal Cannula 2.0 28 04/30/17 20:05 97.7 70 20 154/67 99 Room Air 04/30/17 20:00 77 04/30/17 16:00 97.3 78 19 132/49 100 Nasal Cannula 3.0 04/30/17 16:00 77 04/30/17 12:00 96.6 81 20 137/56 100 Nasal Cannula 2.0 04/30/17 12:00 83 04/30/17 08:00 97.3 81 18 137/77 100 Nasal Cannula 3.0 04/30/17 08:00 77 04/30/17 06:32 Nasal Cannula 2.0 28 04/30/17 06:32 95 18 Nasal Cannula 2.0 28 04/30/17 06:32 96 Nasal Cannula 2.0 28 04/30/17 04:00 97.5 93 18 160/74 100 Nasal Cannula 2.0 04/30/17 04:00 80 04/30/17 00:00 83 Intake and Output 04/29/17 04/30/17 19:00 07:00 Intake Total 490 ml Output Total 100 ml Balance 390 ml Intake Oral 120 ml IV Total 370 ml Output Urine Total 100 ml # Voids 1 6 # Bowel Movements 2 2D Echo: LVEF 65%, LAE, Mod LVH, RVSP 20 mmHg Laboratory Tests Test 04/30/17 07:00 04/30/17 09:45 Sodium Level 133 mEQ/L (135-145) L Potassium Level 4.1 mEQ/L (3.4-4.9) Chloride Level 94 mEQ/L (98-107) L Carbon Dioxide Level 24 mEQ/L (20-30) Anion Gap 15 (5-15) Blood Urea Nitrogen 8 mg/dL (7-23) Creatinine 0.4 mg/dL (0.5-0.9) L Estimat Glomerular Filtration Rate mL/min (>60) Glucose Level 232 mg/dL (74-106) H Calcium Level 8.2 mg/dL (8.6-10.2) L Total Bilirubin 0.4 mg/dL (0.0-1.2) Aspartate Amino Transf (AST/SGOT) 10 U/L (5-40) Alanine Aminotransferase (ALT/SGPT) 7 U/L (3-33) Alkaline Phosphatase 65 U/L (35-104) Total Protein 5.4 g/dL (6.6-8.7) L Albumin 3.1 g/dL (3.5-5.2) L Globulin 2.3 g/dL Albumin/Globulin Ratio 1.3 (1.0-2.7) White Blood Count 3.2 K/UL (4.8-10.8) #L Red Blood Count 2.87 M/UL (4.20-5.40) L Hemoglobin 9.6 G/DL (12.0-16.0) L Hematocrit 27.4 % (37.0-47.0) L Mean Corpuscular Volume 95 FL (80-99) Mean Corpuscular Hemoglobin 33.4 PG (27.0-31.0) H Mean Corpuscular Hemoglobin Concent 35.0 G/DL (32.0-36.0) Red Cell Distribution Width 15.0 % (11.6-14.8) H Platelet Count 405 K/UL (150-450) Mean Platelet Volume 5.0 FL (6.5-10.1) L Neutrophils (%) (Auto) % (45.0-75.0) Lymphocytes (%) (Auto) % (20.0-45.0) Monocytes (%) (Auto) % (1.0-10.0) Eosinophils (%) (Auto) % (0.0-3.0) Basophils (%) (Auto) % (0.0-2.0) Differential Total Cells Counted 100 Neutrophils % (Manual) 78 % (45-75) H Lymphocytes % (Manual) 18 % (20-45) L Monocytes % (Manual) 4 % (1-10) Eosinophils % (Manual) 0 % (0-3) Basophils % (Manual) 0 % (0-2) Band Neutrophils 0 % (0-8) Platelet Estimate Adequate Platelet Morphology Normal Hypochromasia 1+ Anisocytosis 1+ Microbiology Date/Time Source Procedure Growth Status 04/29/17 04:50 Blood Blood Culture - Preliminary NO GROWTH AFTER 24 HOURS Resulted 04/29/17 04:35 Blood Blood Culture - Preliminary NO GROWTH AFTER 24 HOURS Resulted 04/29/17 14:18 Sputum Gram Stain - Final Resulted 04/29/17 14:18 Sputum Sputum Culture - Preliminary Resulted Objective HEENT: Atraumatic, normocephalic, PERRLA, EOMI NECK: No JVD, no carotid bruit with upstroke 2+ B/L HEART: Regular, rate, rhythm, no murmurs, gallops or rubs. LUNGS: Clear ABDOMEN: Soft and nontender, nondistended, + BS, no HSM. EXTREMITIES: No edema, clubbing or cyanosis. NEUROLOGIC: Awake, alert, and oriented, moves all extremities. JOSE MCGRATH Apr 30, 2017 23:59
[2017-05-01] VITALS (7 sets, daily range): BP systolic 134–161; BP diastolic 56–83
[2017-05-01] MEDS: Solu-MEDROL 40mg Inj IVP SCH ×2 (05:39→13:49)
[2017-05-01] MEDS: NovoLOG Insulin Flexpen SUBQ SCH ×3 (05:41→16:33)
[2017-05-01 06:43] LABS: MEAN CORPUSCULAR HEMOGLOBIN 33.2 PG (27.0-31.0); MEAN CORPUSCULAR HGB CONC 34.6 G/DL (32.0-36.0); MEAN CORPUSCULAR VOLUME 96 FL (80-99); MEAN PLATELET VOLUME 4.8 FL (6.5-10.1); PLATELET COUNT 408 K/UL (150-450); RED BLOOD COUNT 2.66 M/UL (4.20-5.40); RED CELL DISTRIBUTION WIDTH 15.5 % (11.6-14.8); WHITE BLOOD COUNT 8.6 K/UL (4.8-10.8)
[2017-05-01 06:49] LABS: PROTHROMBIN TIME 10.1 SEC (9.30-11.50)
[2017-05-01 07:38] LABS: ALANINE AMINOTRANSFERASE 7 U/L (3-33); ALBUMIN/GLOBULIN RATIO 1.3 (1.0-2.7); ANION GAP 12 (5-15); ASPARTATE AMINO TRANSFERASE 11 U/L (5-40); CALCIUM 8.3 mg/dL (8.6-10.2); CARBON DIOXIDE 27 mEQ/L (20-30); CHLORIDE 97 mEQ/L (98-107); CREATININE 0.3 mg/dL (0.5-0.9); HEMOLYSIS 2; POTASSIUM 3.7 mEQ/L (3.4-4.9); SODIUM 136 mEQ/L (135-145); TOTAL PROTEIN 5.4 g/dL (6.6-8.7)
[2017-05-01 08:30] LABS: ANISOCYTOSIS 1+; BAND NEUTROPHILS % (MANUAL) 1 % (0-8); BASOPHILS % (MANUAL) 0 % (0-2); EOSINOPHILS % (MANUAL) 0 % (0-3); LYMPHOCYTES % (MANUAL) 7 % (20-45); NEUTROPHILS % (MANUAL) 87 % (45-75); PLATELET ESTIMATE INCREASED; PLATELET MORPHOLOGY NORMAL; TOTAL CELLS COUNTED 100
[2017-05-01 08:31] LABS: HYPOCHROMASIA 1+
[2017-05-01] MEDS ORDERED: Pantoprazole Inj IVP SCH ×2 (09:00)
[2017-05-01] MEDS ORDERED: Heparin 5000 units/ml inj SUBQ SCH (09:00)
[2017-05-01] MEDS ORDERED: Meropenem 1 GM in NS 110 ML IVPB SCH (09:00)
[2017-05-01] MEDS ORDERED: MEROPENEM1 GM IV (11:45)
[2017-05-01] MEDS ORDERED: PREDNISONE10 M2 PO (11:45)
[2017-05-01] MEDS ORDERED: CARDIZEM30 MG ORAL (11:45)
--- NOTE | 2017-05-01 11:48 | Pulmonology Progress Note ---
Assessment/Plan Assessment/Plan COPD exac pneumonia DM anemia due to blood loss dc to snf complete abx x 5 d more taper steroids PO Subjective Respiratory: Reports: dry cough Allergies: Coded Allergies: PENICILLINS (Verified Allergy, Unknown, 04/29/17) SULFA (SULFONAMIDE ANTIBIOTICS) (Verified Allergy, Unknown, 04/29/17) Objective Last 24 Hour Vital Signs Date Time Temp Pulse Resp B/P Pulse Ox O2 Delivery O2 Flow Rate FiO2 05/01/17 08:00 96.8 79 18 134/56 99 Room Air 05/01/17 07:26 Nasal Cannula 2.0 28 05/01/17 07:26 96 Nasal Cannula 2.0 28 05/01/17 07:20 88 20 100 Nasal Cannula 2.0 28 05/01/17 07:15 86 18 Nasal Cannula 2.0 28 05/01/17 07:15 86 20 96 Nasal Cannula 2.0 28 05/01/17 05:42 62 152/58 05/01/17 03:52 97.5 62 18 152/58 99 Room Air 05/01/17 00:23 74 159/68 05/01/17 00:00 97.1 74 18 159/68 97 Nasal Cannula 3.0 28 04/30/17 22:20 97.7 74 18 156/64 96 Nasal Cannula 2.0 28 04/30/17 20:23 98 Nasal Cannula 2.0 28 04/30/17 20:23 95 18 Nasal Cannula 2.0 28 04/30/17 20:23 Nasal Cannula 2.0 28 04/30/17 20:05 97.7 70 20 154/67 99 Room Air 04/30/17 20:00 77 04/30/17 16:00 97.3 78 19 132/49 100 Nasal Cannula 3.0 04/30/17 16:00 77 04/30/17 12:00 96.6 81 20 137/56 100 Nasal Cannula 2.0 04/30/17 12:00 83 Intake and Output 04/30/17 05/01/17 19:00 07:00 # Voids 3 4 General Appearance: no acute distress Respiratory/Chest: crackles/rales Cardiovascular: normal rate Microbiology Date/Time Source Procedure Growth Status 04/29/17 04:50 Blood Blood Culture - Preliminary NO GROWTH AFTER 48 HOURS Resulted 04/29/17 04:35 Blood Blood Culture - Preliminary NO GROWTH AFTER 48 HOURS Resulted 04/29/17 14:18 Sputum Gram Stain - Final Resulted 04/29/17 14:18 Sputum Culture - Preliminary YEAST Usual Upper Respiratory [place] Resulted 04/29/17 07:05 Nasal Nares MRSA Culture - Final NO METHICILLIN RESISTANT STAPH AUREUS... Complete 04/29/17 07:05 Rectum VRE Culture - Final Enterococcus Faecium - Vre Complete Laboratory Tests 05/01/17 05:45: White Blood Count 8.6#, Red Blood Count 2.66L, Hemoglobin 8.8L, Hematocrit 25.5L , Mean Corpuscular Volume 96, Mean Corpuscular Hemoglobin 33.2H, Mean Corpuscular Hemoglobin Concent 34.6, Red Cell Distribution Width 15.5H, Platelet Count 408, Mean Platelet Volume 4.8L, Neutrophils (%) (Auto) , Lymphocytes (%) (Auto) , Monocytes (%) (Auto) , Eosinophils (%) (Auto) , Basophils (%) (Auto) , Differential Total Cells Counted 100, Neutrophils % ( Manual) 87H, Lymphocytes % (Manual) 7L, Monocytes % (Manual) 5, Eosinophils % ( Manual) 0, Basophils % (Manual) 0, Band Neutrophils 1, Platelet Estimate IncreasedH, Platelet Morphology Normal, Hypochromasia 1+, Anisocytosis 1+, Prothrombin Time 10.1, Prothromb Time International Ratio 1.0, Activated Partial Thromboplast Time 27, Sodium Level 136, Potassium Level 3.7, Chloride Level 97L, Carbon Dioxide Level 27, Anion Gap 12, Blood Urea Nitrogen 9, Creatinine 0.3L, Estimat Glomerular Filtration Rate , Glucose Level 202H, Calcium Level 8.3L, Total Bilirubin 0.4, Aspartate Amino Transf (AST/SGOT) 11, Alanine Aminotransferase (ALT/SGPT) 7, Alkaline Phosphatase 58, Total Protein 5.4L, Albumin 3.1L, Globulin 2.3, Albumin/Globulin Ratio 1.3 Current Medications Medications (Trade) Dose Ordered Sig/Abhijeet Route PRN Reason Start Time Stop Time Status Last Admin Dose Admin Acetaminophen (Tylenol) 650 mg Q6H PRN ORAL Mild Pain/Temp > 100.5 04/30/17 22:35 05/30/17 22:34 Albuterol/ Ipratropium (DuoNeb 0.5-3(2.5)mg/3ml) 3 ml Q4H PRN HHN Shortness of Breath 04/30/17 23:00 05/05/17 22:59 Dextrose (Dextrose 50%) STAT PRN IV Hypoglycemia 04/30/17 22:35 05/30/17 22:34 Diltiazem HCl (Cardizem) 30 mg EVERY 8 HOURS ORAL 05/01/17 00:30 05/31/17 00:29 05/01/17 05:42 Heparin Sodium (Porcine) (Heparin 5000 units/ml) 5,000 units EVERY 12 HOURS SUBQ 05/01/17 09:00 05/31/17 08:59 05/01/17 09:05 Insulin Aspart (NovoLOG) BEFORE MEALS AND HS SUBQ 05/01/17 06:30 05/31/17 06:29 05/01/17 05:41 Meropenem/Sodium Chloride (Merrem/Sodium Chloride) 110 ml @ 220 mls/hr Q12HR IVPB 05/01/17 09:00 05/06/17 08:59 05/01/17 09:00 Methylprednisolone Sodium Succinate (Solu-MEDROL) 40 mg EVERY 8 HOURS IVP 04/30/17 23:00 05/30/17 22:59 05/01/17 05:39 Ondansetron HCl (Zofran) 4 mg Q6H PRN IVP Nausea & Vomiting 04/30/17 22:38 05/30/17 22:37 Pantoprazole (Protonix) 40 mg DAILY IVP 05/01/17 09:00 05/31/17 08:59 05/01/17 08:59 Promethazine HCl/ Codeine (Phenergan with Codeine) 5 ml Q4H PRN ORAL For Cough 04/30/17 22:39 05/30/17 22:38 05/01/17 00:23 SHAYNA TELLO May 01, 2017 11:48
--- NOTE | 2017-05-01 13:19 | Cardiology Report ---
APPROVED REPORT EXAM: Two-dimensional and M-mode echocardiogram with Doppler and color Doppler. INDICATION Shortness of breath M-Mode DIMENSIONS IVSd1.5 (0.7-1.1cm)Left Atrium (MM)3.6 (1.6-4.0cm) LVDd4.9 (3.5-5.6cm)Aortic Root2.2 (2.0-3.7cm) PWd1.6 (0.7-1.1cm)Aortic Cusp Exc.1.5 (1.5-2.0cm) IVSs2.1 cm LVDs3.2 (2.5-4.0cm) PWs2.0 cm Normal left ventricular chamber size, systolic function and wall motion. Left ventricular ejection fraction estimated to be 65 %. Moderate left ventricular hypertrophy by 2-D. Anterior Echo-free space, may be due to pericardial fat or effusion. Mild left atrial enlargement. Right cardiac chamber sizes are within normal limits. Moderate focal aortic valve sclerosis with adequate cusp excursion. Thickened mitral valve leaflets with normal excursion. Mitral annulus and aortic root calcification. Pulmonic valve not well visualized. Normal tricuspid valve structure. IVC at normal size with physiologic collapse. A color flow and spectral Doppler study was performed and revealed: No aortic regurgitation. Trace mitral regurgitation. Trace tricuspid regurgitation. Tricuspid systolic velocities suggests peak right ventricular systolic pressure of 20 mmHg. Trace pulmonic regurgitation present.
--- NOTE | 2017-05-01 13:26 | GI Progress Note ---
Assessment/Plan Problems: (1) Elevated CEA ICD Codes: R97.0 - Elevated carcinoembryonic antigen [CEA] SNOMED: 64321300, 128935505 (2) Severe malnutrition ICD Codes: E43 - Unspecified severe protein-calorie malnutrition SNOMED: 46904530 (3) Anemia ICD Codes: D64.9 - Anemia, unspecified SNOMED: 477177356 (4) Advanced dementia ICD Codes: F03.90 - Unspecified dementia without behavioral disturbance SNOMED: 87279141 Status: stable, unchanged Status Narrative Discussed with Dr. Blair. Assessment/Plan elevated CEA iron panel unremarkable OB stool positive EGD records from [facility] reviewed >> Atrophic gastritis. No mucosal bleed seen. Colonoscopy records >> unable to obtain; no colonoscopy records sent >> daughter states colonoscopy was performed at [facility]? - [facility] Discharge Summary states that the patient requires a colonoscopy in the discharge plans. outpatient colonoscopy if not already performed. If colonoscopy is already done, then outpatient Small Bowel Capsule Endoscopy to evaluate anemia. stable H&H prn transfusions ppi fu labs dc planning Subjective Subjective feels okay wants to go home Objective Last 24 Hour Vital Signs Date Time Temp Pulse Resp B/P Pulse Ox O2 Delivery O2 Flow Rate FiO2 05/01/17 12:00 97.5 76 18 154/72 98 Nasal Cannula 2.0 05/01/17 08:00 96.8 79 18 134/56 99 Room Air 05/01/17 07:26 Nasal Cannula 2.0 28 05/01/17 07:26 96 Nasal Cannula 2.0 05/01/17 07:20 88 20 100 Nasal Cannula 2.0 05/01/17 07:15 86 18 Nasal Cannula 2.0 05/01/17 07:15 86 20 96 Nasal Cannula 2.0 05/01/17 05:42 62 152/58 05/01/17 03:52 97.5 62 18 152/58 99 Room Air 05/01/17 00:23 74 159/68 05/01/17 00:00 97.1 74 18 159/68 97 Nasal Cannula 3.0 04/30/17 22:20 97.7 74 18 156/64 96 Nasal Cannula 2.0 04/30/17 20:23 98 Nasal Cannula 2.0 04/30/17 20:23 95 18 Nasal Cannula 2.0 17 20:23 Nasal Cannula 2.0 28 04/30/17 20:05 97.7 70 20 154/67 99 Room Air 04/30/17 20:00 77 04/30/17 16:00 97.3 78 19 132/49 100 Nasal Cannula 3.0 04/30/17 16:00 77 Intake and Output 04/30/17 05/01/17 19:00 07:00 # Voids 3 4 Laboratory Tests Test 05/01/17 05:45 White Blood Count 8.6 K/UL (4.8-10.8) # Red Blood Count 2.66 M/UL (4.20-5.40) L Hemoglobin 8.8 G/DL (12.0-16.0) L Hematocrit 25.5 % (37.0-47.0) L Mean Corpuscular Volume 96 FL (80-99) Mean Corpuscular Hemoglobin 33.2 PG (27.0-31.0) H Mean Corpuscular Hemoglobin Concent 34.6 G/DL (32.0-36.0) Red Cell Distribution Width 15.5 % (11.6-14.8) H Platelet Count 408 K/UL (150-450) Mean Platelet Volume 4.8 FL (6.5-10.1) L Neutrophils (%) (Auto) % (45.0-75.0) Lymphocytes (%) (Auto) % (20.0-45.0) Monocytes (%) (Auto) % (1.0-10.0) Eosinophils (%) (Auto) % (0.0-3.0) Basophils (%) (Auto) % (0.0-2.0) Differential Total Cells Counted 100 Neutrophils % (Manual) 87 % (45-75) H Lymphocytes % (Manual) 7 % (20-45) L Monocytes % (Manual) 5 % (1-10) Eosinophils % (Manual) 0 % (0-3) Basophils % (Manual) 0 % (0-2) Band Neutrophils 1 % (0-8) Platelet Estimate Increased H Platelet Morphology Normal Hypochromasia 1+ Anisocytosis 1+ Prothrombin Time 10.1 SEC (9.30-11.50) Prothromb Time International Ratio 1.0 (0.9-1.1) Activated Partial Thromboplast Time 27 SEC (23-33) Sodium Level 136 mEQ/L (135-145) Potassium Level 3.7 mEQ/L (3.4-4.9) Chloride Level 97 mEQ/L (98-107) L Carbon Dioxide Level 27 mEQ/L (20-30) Anion Gap 12 (5-15) Blood Urea Nitrogen 9 mg/dL (7-23) Creatinine 0.3 mg/dL (0.5-0.9) L Estimat Glomerular Filtration Rate mL/min (>60) Glucose Level 202 mg/dL (74-106) H Calcium Level 8.3 mg/dL (8.6-10.2) L Total Bilirubin 0.4 mg/dL (0.0-1.2) Aspartate Amino Transf (AST/SGOT) 11 U/L (5-40) Alanine Aminotransferase (ALT/SGPT) 7 U/L (3-33) Alkaline Phosphatase 58 U/L (35-104) Total Protein 5.4 g/dL (6.6-8.7) L Albumin 3.1 g/dL (3.5-5.2) L Globulin 2.3 g/dL Albumin/Globulin Ratio 1.3 (1.0-2.7) Height (Feet): 5 Height (Inches): 3.00 Weight (Pounds): 115 General Appearance: no apparent distress, alert Cardiovascular: normal rate Respiratory/Chest: normal breath sounds, no respiratory distress Abdominal Exam: normal bowel sounds, non tender, soft Zeenat Ervin N.PVika May 01, 2017 13:26
[2017-05-01] MEDS ORDERED: LEVAQUIN500 MG ORAL (14:23)
--- NOTE | 2017-05-01 15:31 | Infectious Diseases Prog Note ---
Assessment/Plan Assessment/Plan ASSESSMENT: 86 y/o female with: // Possible HCAP vs bronchitis - SCx yeast=colonizer - CXR: pending // Leukocytosis - resolved, afebrile ( on steroids ) // COPD exacerbation // h/o CVA // DM2 // [facility] resident // VRE colonized // PCN, sulfa allergies - tolerating meropenem // Full Code PLAN: - ok to DC on IV meropenem d# 3 / 5 - taper steroids per primary - f/u cultures - monitor CBC, temperatures - monitor BMP - monitor CXR Subjective Allergies: Coded Allergies: PENICILLINS (Verified Allergy, Unknown, 04/29/17) SULFA (SULFONAMIDE ANTIBIOTICS) (Verified Allergy, Unknown, 04/29/17) Subjective remains afebrile. breathing improved for possible DC Objective Vital Signs Last 24 Hour Vital Signs Date Time Temp Pulse Resp B/P Pulse Ox O2 Delivery O2 Flow Rate FiO2 05/01/17 13:24 76 154/72 05/01/17 12:00 97.5 76 18 154/72 98 Nasal Cannula 2.0 05/01/17 08:00 96.8 79 18 134/56 99 Room Air 05/01/17 07:26 Nasal Cannula 2.0 28 05/01/17 07:26 96 Nasal Cannula 2.0 28 05/01/17 07:20 88 20 100 Nasal Cannula 2.0 28 05/01/17 07:15 86 18 Nasal Cannula 2.0 28 05/01/17 07:15 86 20 96 Nasal Cannula 2.0 05/01/17 05:42 62 152/58 05/01/17 03:52 97.5 62 18 152/58 99 Room Air 05/01/17 00:23 74 159/68 05/01/17 00:00 97.1 74 18 159/68 97 Nasal Cannula 3.0 28 04/30/17 22:20 97.7 74 18 156/64 96 Nasal Cannula 2.0 04/30/17 20:23 98 Nasal Cannula 2.0 28 04/30/17 20:23 95 18 Nasal Cannula 2.0 28 04/30/17 20:23 Nasal Cannula 2.0 28 04/30/17 20:05 97.7 70 20 154/67 99 Room Air 04/30/17 20:00 77 04/30/17 16:00 97.3 78 19 132/49 100 Nasal Cannula 3.0 04/30/17 16:00 77 Height (Feet): 5 Height (Inches): 3.00 Weight (Pounds): 115 General Appearance: no acute distress Respiratory/Chest: no respiratory distress Cardiovascular: normal rate, regular rhythm Abdomen: normal bowel sounds, soft, non tender, non distended Microbiology Date/Time Source Procedure Growth Status 04/29/17 04:50 Blood Blood Culture - Preliminary NO GROWTH AFTER 48 HOURS Resulted 04/29/17 04:35 Blood Blood Culture - Preliminary NO GROWTH AFTER 48 HOURS Resulted 04/29/17 14:18 Sputum Gram Stain - Final Resulted 04/29/17 14:18 Sputum Culture - Preliminary YEAST Usual Upper Respiratory Iona Resulted 04/29/17 07:05 Nasal Nares MRSA Culture - Final NO METHICILLIN RESISTANT STAPH AUREUS... Complete 04/29/17 07:05 Rectum VRE Culture - Final Enterococcus Faecium - Vre Complete Laboratory Tests Test 05/01/17 05:45 White Blood Count 8.6 K/UL (4.8-10.8) # Red Blood Count 2.66 M/UL (4.20-5.40) L Hemoglobin 8.8 G/DL (12.0-16.0) L Hematocrit 25.5 % (37.0-47.0) L Mean Corpuscular Volume 96 FL (80-99) Mean Corpuscular Hemoglobin 33.2 PG (27.0-31.0) H Mean Corpuscular Hemoglobin Concent 34.6 G/DL (32.0-36.0) Red Cell Distribution Width 15.5 % (11.6-14.8) H Platelet Count 408 K/UL (150-450) Mean Platelet Volume 4.8 FL (6.5-10.1) L Neutrophils (%) (Auto) % (45.0-75.0) Lymphocytes (%) (Auto) % (20.0-45.0) Monocytes (%) (Auto) % (1.0-10.0) Eosinophils (%) (Auto) % (0.0-3.0) Basophils (%) (Auto) % (0.0-2.0) Differential Total Cells Counted 100 Neutrophils % (Manual) 87 % (45-75) H Lymphocytes % (Manual) 7 % (20-45) L Monocytes % (Manual) 5 % (1-10) Eosinophils % (Manual) 0 % (0-3) Basophils % (Manual) 0 % (0-2) Band Neutrophils 1 % (0-8) Platelet Estimate Increased H Platelet Morphology Normal Hypochromasia 1+ Anisocytosis 1+ Prothrombin Time 10.1 SEC (9.30-11.50) Prothromb Time International Ratio 1.0 (0.9-1.1) Activated Partial Thromboplast Time 27 SEC (23-33) Sodium Level 136 mEQ/L (135-145) Potassium Level 3.7 mEQ/L (3.4-4.9) Chloride Level 97 mEQ/L (98-107) L Carbon Dioxide Level 27 mEQ/L (20-30) Anion Gap 12 (5-15) Blood Urea Nitrogen 9 mg/dL (7-23) Creatinine 0.3 mg/dL (0.5-0.9) L Estimat Glomerular Filtration Rate mL/min (>60) Glucose Level 202 mg/dL (74-106) H Calcium Level 8.3 mg/dL (8.6-10.2) L Total Bilirubin 0.4 mg/dL (0.0-1.2) Aspartate Amino Transf (AST/SGOT) 11 U/L (5-40) Alanine Aminotransferase (ALT/SGPT) 7 U/L (3-33) Alkaline Phosphatase 58 U/L (35-104) Total Protein 5.4 g/dL (6.6-8.7) L Albumin 3.1 g/dL (3.5-5.2) L Globulin 2.3 g/dL Albumin/Globulin Ratio 1.3 (1.0-2.7) Current Medications Medications (Trade) Dose Ordered Sig/Abhijete Route PRN Reason Start Time Stop Time Status Last Admin Dose Admin Acetaminophen (Tylenol) 650 mg Q6H PRN ORAL Mild Pain/Temp > 100.5 04/30/17 22:35 05/30/17 22:34 Albuterol/ Ipratropium (DuoNeb 0.5-3(2.5)mg/3ml) 3 ml Q4H PRN HHN Shortness of Breath 04/30/17 23:00 05/05/17 22:59 Dextrose (Dextrose 50%) STAT PRN IV Hypoglycemia 04/30/17 22:35 05/30/17 22:34 Diltiazem HCl (Cardizem) 30 mg EVERY 8 HOURS ORAL 05/01/17 00:30 05/31/17 00:29 05/01/17 13:24 Heparin Sodium (Porcine) (Heparin 5000 units/ml) 5,000 units EVERY 12 HOURS SUBQ 05/01/17 09:00 05/31/17 08:59 05/01/17 09:05 Insulin Aspart (NovoLOG) BEFORE MEALS AND HS SUBQ 05/01/17 06:30 05/31/17 06:29 05/01/17 12:22 Meropenem/Sodium Chloride (Merrem/Sodium Chloride) 110 ml @ 220 mls/hr Q12HR IVPB 05/01/17 09:00 05/06/17 08:59 05/01/17 09:00 Methylprednisolone Sodium Succinate (Solu-MEDROL) 40 mg EVERY 8 HOURS IVP 04/30/17 23:00 05/30/17 22:59 05/01/17 13:49 Ondansetron HCl (Zofran) 4 mg Q6H PRN IVP Nausea & Vomiting 04/30/17 22:38 05/30/17 22:37 Pantoprazole (Protonix) 40 mg DAILY IVP 05/01/17 09:00 05/31/17 08:59 05/01/17 08:59 Promethazine HCl/ Codeine (Phenergan with Codeine) 5 ml Q4H PRN ORAL For Cough 04/30/17 22:39 05/30/17 22:38 05/01/17 00:23 SHAUNNA HYMAN May 01, 2017 15:31
[2017-05-01] MEDS ORDERED: NS 275ml ONE ×2 (19:59)
[2017-05-01] MEDS ORDERED: Tubing IV Secondary IV ONE ×2 (19:59)
[2017-05-02 12:50] LABS: OTHERS PATHOLOGIST COMMENT
--- NOTE | 2017-05-02 19:24 | Diagnostic Imaging Report ---
APPROVED REPORT CPT Code: 16024 Symptoms Weakness Other : Pain Risk Factors TIA/CVA History Diabetes : LEFT UPPER EXTREMITY: Imaging of the subclavian, axillary, brachial, radial and ulnar arteries is within normal limits. There is no evidence of stenosis or occlusions within these segments. The Doppler waveforms of the left upper extremity are multiphasic, consistent with normal inflow to the left upper extremity.
--- NOTE | 2017-05-02 19:24 | Diagnostic Imaging Report ---
APPROVED REPORT CPT Code: 78479 Present Symptoms Upper Extremity Edema: Left Shortness of breath Comments: Hx diabetes, COPD. LEFT UPPER EXTREMITY: Venous imaging reveals patency of the internal jugular, subclavian, axillary and brachial veins. The cephalic and basilic veins are also patent. Doppler indicates normal spontaneous flow within these venous segments.
--- NOTE | 2017-05-03 15:32 | Discharge Summary ---
Discharge Summary Hospital Course Date of Admission Apr 29, 2017 at 05:38 Date of Discharge May 01, 2017 at 20:00 Admitting Diagnosis Pneumonia HPI Priya Underwood is a 86 year old female who was admitted on Apr 29, 2017 at 05:38 for Pneumonia Hospital Course [id number] Discharge Discharge Disposition Patient was discharged to Home with Home Health(06) Discharge Diagnoses: Sania Dewitt NP May 03, 2017 15:32
--- NOTE | 2017-05-04 02:30 | Discharge Summary 2 SIG ---
DATE OF ADMISSION: 04/29/2017 DATE OF DISCHARGE: 05/01/2017 CONSULTANTS: 1. Edvin Blair M.D. 2. Salvador Leos M.D. 3. Akil Shaw M.D. BRIEF HOSPITAL COURSE: The patient is an 86-year-old female, who is a resident of [facility], presented to the hospital due to worsening of shortness of breath for one day. On evaluation at ED, the patient had some chest tightness and wheezing. Nebulizer treatment was given. Chest x-ray done showed right lower lobe infiltrate. EKG was in sinus tachycardia at a rate of 120s. Laboratories showed leukocytosis. She was then started on IV antibiotics and was admitted to telemetry for healthcare-associated pneumonia and chronic obstructive pulmonary disease exacerbation. She was started on intravenous meropenem. Sputum culture showed growth of Татьяна and upper respiratory manuel. Blood cultures did not isolate any growth. She was started on IV steroids and was given respiratory treatment and antitussives. She underwent venous duplex of left upper extremity that showed patency of the internal jugular, subclavian, and brachial veins with normal spontaneous Doppler flow. An echocardiogram done showed left ventricular ejection fraction of 65%. Dyspnea was assessed to be likely due to pneumonia superimposed on acute chronic obstructive pulmonary disease. She had elevated blood pressure and was given diltiazem. She came in with anemia. Stool OB was positive. She had an endoscopy done from [facility], which showed atrophic gastritis. She was recommended to undergo colonoscopy as outpatient. She was given proton pump inhibitors and hemoglobin and hematocrit have been stable. Steroids was eventually tapered. She came in with a pressure ulcer stage II in the coccygeal area and deep tissue injury on sacral area. She was given wound care treatment with frequent off loading. She was eventually discharged home with home health for PT and OT, home safety evaluation, and to complete antibiotic therapy for five more days. FINAL DISPOSITION: The patient's home with home health. DISCHARGE MEDICATIONS: Refer to med list. FINAL DIAGNOSES: 1. Acute chronic obstructive pulmonary disease exacerbation. 2. Healthcare-associated pneumonia. 3. Diabetes mellitus. 4. Anemia due to blood loss. Rene Corral M.D. I have been assigned to dictate discharge summary on this account and I was not involved in the patient's management. Sania Dewitt N.P. DR: ASHLEY JOB#: [id number] CC:
== END 2017-05-01 20:00 | disposition home health service (06) | DRG 193 ==
LOC: ENRESERVDT → ENRESERV → ENRESERVTM → EDBD 04:11 → EMR 04:57 → 2E 05:38 → EDBEDREQ 06:43 → 4E 04-30 22:24 → 4W 05-01 08:06
DX: J18.9 Pneumonia, unspecified organism (principal); E43 Unspecified severe protein-calorie malnutrition; F03.90 Unspecified dementia, unspecified severity, without behavioral disturbance, psychotic disturbance, mood disturbance, and anxiety; E11.9 Type 2 diabetes mellitus without complications; L89.152 Pressure ulcer of sacral region, stage 2; J44.1 Chronic obstructive pulmonary disease with (acute) exacerbation; D50.0 Iron deficiency anemia secondary to blood loss (chronic); I10 Essential (primary) hypertension; E87.1 Hypo-osmolality and hyponatremia; E78.5 Hyperlipidemia, unspecified; M81.0 Age-related osteoporosis without current pathological fracture; Z88.0 Allergy status to penicillin; Z88.2 Allergy status to sulfonamides; R97.0 Elevated carcinoembryonic antigen [CEA]
CPT/HCPCS: 36415; 71010; 80053; 81003; 82270; 82378; 82550; 82553; 82607; 82746; 82962; 83540; 83550; 83605; 83615; 83880; 83930; 83935; 84484; 85007; 85025; 85044; 85060; 85610; 85651; 85730; 87040; 87070; 87081; 87205; 93005; 93306; 93926; 93971; 94640; 94664; 94760; J1815; J7620